=== PATIENT | male | born 1955 | race Caucasian/White ===

== ENCOUNTER 2017-08-15 19:39 | Inpatient (IN) | payer BC ==
[~2017-08-15] VITALS: Ht 200.7 cm; Wt 117.5 kg
--- NOTE | ~2017-08-15 | EKG ---
[place], [place] ELECTROCARDIOGRAM REPORT NAME: RENETTA NEAL UNIT #: [id number] ROOM: [facility] DOCTOR: RENAN RODRÍGUEZ MD,HESHAM BIRTHDATE: [birth year] DOS: 08/15/2017 ELECTROCARDIOGRAM The electrocardiogram done on 08/15/2017 at 8:03 p.m. Normal sinus rhythm noted. Heart rate of 87 beats per minute. Poor R-wave progression of the patient was also noted in the left chest leads. Nonspecific ST-T changes noted in the chest leads as well. HESHAM URRUTIA MD CM:EKGRPT:ELECTROCARDIOGRAM REPORT [id number] HESHAM RODRÍGUEZ MD
--- NOTE | ~2017-08-15 | WRIGHTHP ---
[place], [place] PATIENT HISTORY AND PHYSICAL EXAM NAME: RENETTA NEAL [facility] #: [id number] UNIT #: [id number] ROOM: [facility] DOCTOR: YUE BARRAZA MD BIRTHDATE: [birth year] DOS: 08/15/2017 DIAGNOSES: 1. The patient is a 62-year-old gentleman with history of type 1 diabetes mellitus since the age of 17. 2. Charcot foot and right below knee amputation. 3. Mixed hyperlipidemia. HISTORY OF PRESENT ILLNESS: The patient presented to the emergency department with 2-day complaints of increasing nausea, weakness and feeling quite sick. In the ER, the patient was found to have severe hyperglycemia with the blood sugar of 700 and diabetic ketoacidosis with acute renal failure, hyperkalemia and severe leukocytosis compatible with sepsis. The patient also had bacteriuria and signs of urinary infection along with right middle lobe pneumonia on the chest x-ray and elevated white cell count of 21,000. The patient started on treatment with IV insulin and hydration with normal saline in the emergency department and given intravenous insulin and admitted to ICU at [facility]. The patient was started on IV Zosyn for a urinary infection for bacteriuria and his lactic acid level was elevated to 4.7, which was followed. With treatment, the patient is feeling much better. He has started eating. There are no complaints of any chest pain, no shortness of breath, no other GI or urinary symptoms. The nausea has resolved. REVIEW OF SYSTEMS: LUNGS: No increasing shortness of breath or wheezing. GASTROINTESTINAL: The patient did have nausea, but no vomiting or diarrhea. CARDIOVASCULAR: No chest pain, no palpitations. FAMILY HISTORY: Noncontributory. SOCIAL HISTORY: Denies smoking cigarettes, alcohol and drug abuse. HOME MEDICATIONS: The patient is on insulin pump, aspirin and albuterol inhaler. ALLERGIES: No known drug allergies. PHYSICAL EXAMINATION: GENERAL APPEARANCE: Alert, oriented times 3, in no visible distress. HEENT AND NECK: Extraocular movements are intact. Sclerae are anicteric. Oral mucosa is moist and clean. No obvious facial weakness. Neck is supple without any lymphadenopathy. No thyromegaly. No JVD. No carotid arterial bruits. LUNGS: Clear to auscultation. No wheezing. No rhonchi. CARDIOVASCULAR SYSTEM: Heart rate is regular in rate and rhythm. S1 and S2 normally audible. No significant murmur or any other abnormal cardiac sounds. ABDOMEN: Soft, nontender. No obvious organomegaly. Bowel sounds are present. No obvious herniation. EXTREMITIES: Right below knee amputation. CENTRAL NERVOUS SYSTEM: Alert and oriented x 3. Cranial nerves II-XII are intact. Speech is normal. The patient is able to move all extremities. Normal [place], [place] PATIENT HISTORY AND PHYSICAL EXAM NAME: RENETTA NEAL UNIT #: [id number] ROOM: [facility] DOCTOR: YUE BARRAZA MD BIRTHDATE: [birth year] muscle strength. Deep tendon reflexes are equal on both sides. Plantars were downgoing. LABORATORY DATA: Blood sugars have improved from 700 to 138 now. Potassium has improved to normal from 5.7 at admission and CO2 level of 7. Basic metabolic profile has improved to normal at 21 with treatment. IMPRESSION: 1. The patient with diabetic ketoacidosis apparently induced by infection. The patient is a type 1 diabetic since the age of 17 and uses insulin pump. The patient has been treated with IV insulin infusion protocol and hydrated with normal saline and later on D5 half normal along with potassium supplementation and his serum electrolytes, blood sugars were monitored closely in the ICU. The patient is still on dextrose infusion and his IV insulin has been converted to every 4 hours insulin sliding scale and his insulin pump that he takes at home is going to be restarted. The patient is still being followed closely in the ICU. Case discussed with nursing staff in detail. 2. Type 1 diabetes mellitus with hemoglobin A1c of 7.8, treated with insulin pump at home. 3. Urinary tract infection with bacteriuria, IV antibiotic started. 4. Leukocytosis related to urinary tract infection and right middle lobe pneumonia. White cell counts to be monitored while patient is being treated with antibiotics. 5. Right below knee amputation for Charcot foot abnormality related to his diabetes. 6. Acute kidney failure and acute tubular necrosis, improved with hydration and blood pressure control. 7. Blood cultures ordered, complete blood counts and white cell counts along with BUN, creatinine, potassium level, sodium and CO2 levels are being monitored. The patient is out of diabetic ketoacidosis. His anion gap has normalized and lactic acid levels have come down with treatment. The patient is clinically looking well and has stabilized, but I will continue to observe him closely in the ICU. YUE BARRAZA MD CM:HISPHYS:PATIENT HISTORY AND PHYSICAL EXAMINATION [id number] YUE BARRAZA MD 08/16/17 1827 interface
--- NOTE | ~2017-08-15 | CON ---
[place], [place] REPORT OF CONSULTATION NAME: RENETTA NEAL UNIT #: [id number] ROOM: [facility] DOCTOR: HESHAM AMARAL MD BIRTHDATE: [birth year] DOS: 08/16/2017 PULMONARY CONSULTATION, EVALUATION AND MANAGEMENT CONSULTATION REQUESTED BY: Dr. Perez and Dr. Amarilis Rois. REASON FOR CONSULTATION: For the assessment of acute pneumonia. HISTORY OF PRESENT ILLNESS: This is a 62-year-old of male patient who has been admitted to [facility] on 08/15/2017. The patient has been brought to the hospital by the ambulance as the patient has been noted getting increased symptoms of nausea, vomiting, which has been ongoing for at least 24 hours or greater. He was also noted with symptoms of dizziness and generalized weakness and fatigue. The patient denies any symptoms of chest pain. He has been noted with increased lethargy as reported at home. There has not been any witnessed aspiration described for this patient on admission. He has been noted with a significant elevation of the blood sugar for more than 700 was also found. At home the sugar was noted 527 as well. The patient has been admitted to the Intensive Care Unit where he has been managed for the current problems and other issues. At the present time, the patient denies any symptoms of acute shortness of breath. Denies symptoms of chest pain. He does not have any symptoms of coughing, wheezing or hemoptysis. REVIEW OF SYSTEMS: CONSTITUTIONAL SYMPTOMS: He was noted with symptoms of fatigue and tiredness. Denies symptoms of fever or chills. EYES: Denies any burning or redness. EARS, NOSE, AND THROAT: Sore throat, hoarseness, otalgia, postnasal drainage or epistaxis. CARDIOVASCULAR SYSTEM: Denies any symptoms of anginal pain, palpitation or edema of the extremities. GASTROINTESTINAL: Symptoms of nausea, vomiting for the patient which has been present, couple of days had been completely resolved at this time. No symptoms of dysphagia or any abnormal weight loss history. GENITOURINARY SYMPTOMS: Polyuria for the patient described without any burning of urination, hematuria. SKIN: Denies lesions or rashes. CENTRAL NERVOUS SYSTEM: Dizziness described with symptoms of seizures or syncopal episodes or tingling sensation of the extremities. Remaining systems were reviewed with the patient, they were noted all negative. PAST MEDICAL HISTORY: Reported as: 1. History of type 2 diabetes mellitus of the patient. 2. Hypercholesterolemia. 3. History of essential hypertension. PAST SURGICAL HISTORY: Reported as 1. Insulin pump infusion. 2. Right cataract extraction for the patient with intraocular lens [place], [place] REPORT OF CONSULTATION NAME: RENETTA NEAL UNIT #: [id number] ROOM: [facility] DOCTOR: RENAN RODRÍGUEZ MD,HESHAM BIRTHDATE: [birth year] implantation. 3. Left knee arthroscopy. 4. T and A. 5. Left foot surgery. SOCIAL HISTORY: The patient stated he is , has one child. He has a known history of tobacco use of the patient since teenager, 3/4 pack of cigarettes per day, which has been discontinued about 6 years ago. Currently, the patient smoking cigars intermittently. FAMILY HISTORY: Both parents had been and the history was described to be noncontributory by the patient. HOME MEDICATIONS: Listed in the medication reconciliation by the nursing staff for this patient: 1. Insulin pump use for medical management of diabetes mellitus. 2. Aspirin 81 mg daily. 3. Vitamin D 2000 international units daily. 4. Nexium 40 mg daily. 5. Zestril 20 mg daily. 6. Metoprolol tartrate 50 mg daily. 7. Zocor 40 mg daily. 8. NovoLog insulin was also used by the patient with the insulin pump. DRUG ALLERGY HISTORY: The patient was noted as no known drug allergies. PHYSICAL EXAMINATION: GENERAL: A 62-year-old white male was noted currently awake and alert without any acute distress. Height were recorded as 6 feet 7 inches, weight of 117 kg with BMI of 29.2. VITAL SIGNS: For the patient, which were recorded showed the temperature noted normal since admission, respiratory rate 18-20, heart rate 92-100. The blood pressure 102/59-113/48. The pulse oxygen saturation of the patient recorded on room air was 96% saturation. HEENT: Head was atraumatic, mild obesity. NECK: Supple. CARDIOVASCULAR: S1, S2 audible. LUNGS: The patient was noted without any wheezing or crackles. ABDOMEN: Soft, nontender. Bowel sounds present. CENTRAL NERVOUS SYSTEM: Cranial nerves 2-12 intact. No focal deficit. MUSCULOSKELETAL: No deformities. SKIN: No lesions or rashes. LABORATORY DATA: Lactic acid on admission noted 4.7. CBC of 08/15/2017, WBC count of 21.4, hemoglobin and hematocrit normal, platelet count were normal with 86% segmented neutrophils on admission. CMP on admission, glucose 700, BUN 41, creatinine 1.75. Sodium 130, potassium 5.7. Chloride of 92, CO2 of 7 with anion gap of 31. The findings were noted consistent with evidence of diabetic ketoacidosis. The serum ketone level is noted 1:8 dilution positive. The PT, PTT for the patient noted as normal. Bedside blood glucose of the patient has [place], [place] REPORT OF CONSULTATION NAME: RENETTA NEAL UNIT #: [id number] ROOM: [facility] DOCTOR: RENAN RODRÍGUEZ MD,[facility] BIRTHDATE: [birth year] been monitored from yesterday, with the blood glucose this morning for this patient recorded 191 at 9:00 a.m. BMP of the patient later on 08/15/2017, glucose 587, BUN 43, creatinine 1.86. Sodium 134, chloride of 99, CO2 of 8, still shows evidence of elevation of anion gap for this patient. Follow up lactic acid 3.2. Potassium repeated was 4.7. BMP for the patient this morning was noted with glucose 280, BUN 48, creatinine 1.64. Sodium 135, potassium 3.8, chloride of 103, CO2 of 19. The anion gap was noted as 13 at the present time. CBC this morning, WBC count 17.6, hemoglobin 14.9, hematocrit 43.4 with a platelet count 250,000. The review of the radiology data for the patient is: Chest x-ray done on admission of the patient, which was personally reviewed. It shows evidence of right middle lobe area of atelectasis or small infiltration was suspected. IMPRESSION: 1. The patient who had been admitted to the hospital noted with symptoms of nausea, vomiting and abnormal chest x-ray. The patient currently noted with initial first diagnosis of diabetic ketoacidosis. The patient with history of insulin use of the patient with the insulin pump and not been noted functional effectively. 2. Right middle lobe infiltration. Possibility of acute pneumonia for this patient secondary to small aspiration cannot be completely excluded because of the current nausea, vomiting and lethargy. 3. The patient with a history of essential hypertension. 4. Acute kidney injury. The patient noted as a result of current diabetic ketoacidosis. 5. Lactic acidosis, most likely related to current diabetic ketoacidosis with possibility of sepsis cannot be completely excluded in addition to the other medical illnesses. PLAN OF MANAGEMENT: The patient has been given intravenous insulin drip for the patient resulting in resolution of diabetic ketoacidosis at the present time. He has been monitored for the patient's kidney function at this time closely, which seemed to be resolving. The patient was getting IV Zosyn that will be continued as a primary antibiotics for the patient possibility of aspiration. Obtain a PA lateral chest x-ray of the patient in the morning as well to assess the progression of the current pulmonary infiltration. Obtain the sputum for Gram stain and culture if the patient developed productive cough at this time. He does not have any productive cough. Usual care. Other treatment changes to be made for the patient based on progression of the illness. Addition of the DVT prophylaxis for this patient as well. Monitor hemodynamically the patient closely as well. Further subsequent changes will be made for this patient later on as necessary. Thanks for allowing me to participate in the care of this patient. [place], [place] REPORT OF CONSULTATION NAME: RENETTA NEAL UNIT #: [id number] ROOM: [facility] DOCTOR: HESHAM AMARAL MD BIRTHDATE: [birth year] HESHAM URRUTIA MD CM:CONSTR:REPORT OF CONSULTATION 1055 08/17/17 0305 interface
[~2017-08-15 19:39] MED LIST: ASPIRIN81 M1 PO; HUMALOG100 U/ML SC; KEFLEX500 MG PO; VICODIN ES 7501 TAB PO; ZESTRIL,PRINIVI20 MG PO; ZOCOR40 MG PO
[2017-08-15 20:10] VITALS: BP 113/48
[2017-08-15 20:21] LABS: HEMATOCRIT 49.1 % (42.0-52.0); HEMOGLOBIN 16.3 g/dl (14.0-18.0); MEAN CELL VOLUME 96.1 fl (80.0-94.0); MEAN CORPUSCULAR HGB 31.9 pg (27.0-31.0); MEAN CORPUSCULAR HGB CONC 33.2 g/dl (33.0-37.0); PLATELET COUNT AUTOMATED 266 10*3/uL (130-400); RED BLOOD COUNT 5.11 10*6/uL (4.50-5.90); RED CELL DISTRI WIDTH 13.2 % (0-14.5); WHITE BLOOD COUNT 21.4 10*3/uL (4.8-10.8)
[2017-08-15 20:38] LABS: ALBUMIN 3.1 gm/dl (3.1-4.5); CREATININE 1.75 mg/dL (0.70-1.30); POTASSIUM 5.7 mmol/L (3.5-5.1); TOTAL PROTEIN 6.8 gm/dL (6.4-8.2)
[2017-08-15 20:40] LABS: BURR CELLS MODERATE; PLATELET SUFFICIENCY NORMAL (NORMAL); TOTAL CELLS COUNTED 100 #CELLS
[2017-08-15 20:44] LABS: TROPONIN I 0.796 ng/ml (<0.045)
--- NOTE | 2017-08-15 20:45 | NUR ---
notified dr capone of troponin, glucose and co1
[2017-08-15 20:55] LABS: ACT PARTIAL THROMBO TIME 28.3 SECONDS (20.8-31.5)
[2017-08-15 21:52] LABS: BILIRUBIN NEGATIVE (NEGATIVE); BLOOD NEGATIVE (NEGATIVE); CLARITY CLEAR (CLEAR); COLOR YELLOW (YELLOW); GLUCOSE 3+ (NEGATIVE); KETONE 2+ (NEGATIVE); LEUKO ESTERASE NEGATIVE (NEGATIVE); NITRITE NEGATIVE (NEGATIVE); PH 5.5 (5.0-9.0); UROBILINOGEN 0.2 E.U./dl (0.2-1.0)
[2017-08-15 21:59] LABS: BACTERIA 2+; MUCOUS TRACE; RBC 0-2 rbc/hpf (0-2); WBC 0-2 wbc/hpf (0-5)
[2017-08-15 22:00] VITALS: BP 109/56
[2017-08-15 22:05] VITALS: BP 113/51
--- NOTE | 2017-08-15 22:05 | NUR ---
A 62, admitted to ICCU, under the services of Dr. CHRISTI STOVALL,YUE Ghosh with a diagnosis of DKA. Chief complaint is NAUSEA, GLUCOSE TOO HIGH TO READ. Patient arrived via stretcher from ER. Monitor applied. Initial assessment completed. Vital signs taken and recorded. DR. CHRISTI STOVALL,YUE Ghosh notified of admission to the unit. Orders received. See assessment for past medical history, medications and allergies. Patient and/or family oriented to unit. [facility]U visitation policy reviewed. Clothing/patient valuable form completed. BARBARA PAINTER
--- NOTE | 2017-08-15 22:20 | NUR ---
PT. STATES HE DOES TAKE CURRENT MEDS ON MED REQUISITION LISTED, BUT IS UNSURE IF THERE ARE ADDITIONAL MEDICATIONS AND DOES NOT HAVE A LIST WITH HIM.
--- NOTE | 2017-08-15 22:22 | NUR ---
REPORT GIVEN TO AMINAH CARUSO. BEDISDE GLUCOSE PERFORMED BEFORE PT TRANSPORT, CRITICALLY HIGH. STAT REFLUX ORDERED
--- NOTE | 2017-08-15 23:01 | NUR ---
24 HR chart check completed.
--- NOTE | 2017-08-15 23:37 | NUR ---
DR. BARRAZA NOTIFIED OF CRITICAL GLUCOSE AND LACTIC ACID RESULTS.
[2017-08-16] VITALS: BP 94/63
[2017-08-16 00:02] LABS: CREATININE 1.86 mg/dL (0.70-1.30)
[2017-08-16 00:03] LABS: POTASSIUM 4.7 mmol/L (3.5-5.1)
--- NOTE | 2017-08-16 00:08 | NUR ---
DR. URRUTIA NOTIFIED OF CONSULT.
--- NOTE | 2017-08-16 00:12 | NUR ---
DR. BARRAZA NOTIFIED OF CRITICAL GLUCOSE AND CO2 RESULTS. WAS ALSO NOTIFIED THAT A PRIME REP CALLED AND REQUESTED THAT BLOOD CULTURES ARE ORDERED. WAS ALSO NOTIFIED THAT THE REP WANTED A REASON TO WHY THE BLOOD CULTURES WERE NOT DRAWN PRIOR TO THE FIRST DOSE OF ANTIBIOTICS DOCUMENTED.
--- NOTE | 2017-08-16 02:26 | NUR ---
PHONE NUMBER LICO [phone]
[2017-08-16 04:00] VITALS: BP 120/62
[2017-08-16 06:06] LABS: BASO % 0.1 % (0.0-1.0); HEMATOCRIT 43.4 % (42.0-52.0); HEMOGLOBIN 14.9 g/dl (14.0-18.0); LYMPH # 1.9 10*3/uL (1.3-4.4); LYMPH % 10.6 % (27.0-41.0); MEAN CORPUSCULAR HGB 31.6 pg (27.0-31.0); MEAN CORPUSCULAR HGB CONC 34.3 g/dl (33.0-37.0); MEAN PLATELET VOLUME 9.3 fl (9.6-12.3); MONO # 0.9 10*3/uL (0.1-1.0); MONO % 5.2 % (3.0-9.0); NEUT # 14.7 10*3/uL (2.3-7.9); NEUT % 83.5 % (47.0-73.0); PLATELET COUNT AUTOMATED 250 10*3/uL (130-400); RED BLOOD COUNT 4.72 10*6/uL (4.50-5.90); RED CELL DISTRI WIDTH 13.2 % (0-14.5); WHITE BLOOD COUNT 17.6 10*3/uL (4.8-10.8)
[2017-08-16 06:12] LABS: MEAN CELL VOLUME 91.9 fl (80.0-94.0)
[2017-08-16 06:28] LABS: CREATININE 1.64 mg/dL (0.70-1.30); POTASSIUM 3.8 mmol/L (3.5-5.1)
[2017-08-16 08:00] VITALS: BP 102/59
--- NOTE | 2017-08-16 09:00 | NUR ---
Human Services Care Specialist in to talk to patient. Patient states lives at HOME with HIS . There are 12 steps in the home. Physician: DR CARDENAS Pharmacy: [facility] health services: NONE Patient's level of ADLs: INDEPENDENT Patient has working utilities: YES DME: PROSTHEITC RIGHT LEG R BKA Follow-up physician's appointment after d/c: PREFERS TO MAKE HIS OWN APPT Does patient want to access PORTAL?: Discharge plan HOME. ANGUS PHILLIPS
[2017-08-16] MEDS ORDERED: LOPRESSOR50 M1 PO (09:31)
[2017-08-16] MEDS ORDERED: NEXIUM40 MG PO (09:32)
[2017-08-16] MEDS ORDERED: VITAMIN D32000 UNIT PO (09:33)
[2017-08-16] MEDS ORDERED: THERATRUM COMP1 EAC1 PO (09:35)
[2017-08-16 12:00] VITALS: BP 104/56
[2017-08-16 12:27] LABS: BUN 43 mg/dl (7-24); CHLORIDE 106 mmol/L (98-107); CREATININE 1.25 mg/dL (0.70-1.30); POTASSIUM 3.5 mmol/L (3.5-5.1); SODIUM 136 mmol/L (136-145)
[2017-08-16 16:00] VITALS: BP 104/56
--- NOTE | 2017-08-16 16:00 | NUR ---
DR. BARRAZA NOTIFIED OF CBS 155 AND NOT HAVING HOME INSULIN DRIP TO INITIATE. WELL ELEVATED TROPONIN UPON ADMISSION WITHOUT FOLLOW UP. NEW ORDERS RECEIVED. MIGUEL A FRANCES RN
--- NOTE | 2017-08-16 18:00 | NUR ---
DR. BARRAZA NOTIFIED OF BRIGHT RED EMESIS W/ FLECKS OF COFFEE GROUNDS. NEW ORDERS RECEIVED. MIGUEL A FRANCES RN
[2017-08-16 18:26] LABS: BUN 43 mg/dl (7-24); CHLORIDE 102 mmol/L (98-107); CREATININE 1.11 mg/dL (0.70-1.30); POTASSIUM 3.9 mmol/L (3.5-5.1); SODIUM 132 mmol/L (136-145)
--- NOTE | 2017-08-16 18:50 | NUR ---
NOTIFIED OF ELEVATED TROPONIN AND ABNORMAL BMP. NEW ORDERS RECEIVED. MIGUEL A FRANCES RN
--- NOTE | 2017-08-16 19:00 | NUR ---
DR. TEE CALLED IN AFTER SPEAKING TO DR. BARRAZA REGARDING PATIENT'S CONDITION. EKG OBTAINED AND SENT TO DR. TEE AND DR. BARRAZA. DR. TEE CALLED BACK STATING HE'S ARRANGING TRANSFER TO ICU AT [facility] BY HELICOPTOR. DR. BARRAZA NOTIFIED AND AWARE OF TRANSFER. MIGUEL A FRANCES RN
--- NOTE | 2017-08-16 19:07 | NUR ---
DR. TEE NOTIFIED OF CONSULT.
[2017-08-16 20:00] VITALS: BP 124/63
--- NOTE | 2017-08-16 20:25 | NUR ---
1945 PT RESTING IN BED TALKING WITH FAMILY. INSULIN GTT RESTARTED AT 1930. IV FLUIDS INFUSING WELL. CONT TO DENY CHEST PAIN OR DISCOMFORT. PULSE OX 98% ON 2L. BANERJEE PATENT AND DRAINING CLEAR YELLOW URINE. 2019 LAB CALLED.SAID THEY ARE HAVING TROUBLE WITH THEIR MACHINE THAT DOES THE TROPONIN'S.THEY WILL LET US KNOW WHEN THEY ARE ABLE TO RUN IT. 2024 LAB CALLED CONT ELEVATED TROPONIN. STILL WAITING ON A RETURN CALL FROM [facility] WITH A BED AND THEN WE WILL CALL FOR TRANSPORT.
--- NOTE | 2017-08-16 21:14 | NUR ---
ATTEMPTED TO CALL DR. TEE WITH AN UPDATE. 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
--- NOTE | 2017-08-16 22:36 | NUR ---
[facility] [facility] CALLED WITH A BED. HELICOPTER IS ON THEIR WAY. PT REMAINS WIHTOUT C/O'S.
--- NOTE | 2017-08-16 23:05 | NUR ---
DISCHARGED TO .' VIA STAT [facility]. REPORT GIVEN. PROPER PAPERS SENT WITH PT.
--- NOTE | 2017-08-16 23:08 | NUR ---
SON, PENG, CALLED TO LET HIM KNOW OF TRANSFER.
--- NOTE | 2017-08-16 23:25 | NUR ---
[address] [facility]
== END 2017-08-16 23:05 | disposition short-term general hospital (02) | DRG 637 ==
LOC: ED 19:39 → EDHOLD 21:02 → ICCU 21:12
PROVIDERS: Emergency Medicine Emergency Medical Services; ADMIT Internal Medicine
DX: E10.10 Type 1 diabetes mellitus with ketoacidosis without coma (principal); J18.1 Lobar pneumonia, unspecified organism; N17.0 Acute kidney failure with tubular necrosis; N39.0 Urinary tract infection, site not specified; D72.829 Elevated white blood cell count, unspecified; Z96.41 Presence of insulin pump (external) (internal); B96.89 Other specified bacterial agents as the cause of diseases classified elsewhere; I10 Essential (primary) hypertension; Z96.1 Presence of intraocular lens; M14.679 Charcot's joint, unspecified ankle and foot; E78.2 Mixed hyperlipidemia; Z89.511 Acquired absence of right leg below knee; Z98.41 Cataract extraction status, right eye; Z79.4 Long term (current) use of insulin

== ENCOUNTER → 2017-10-08 | Outpatient (CLI) | payer BC ==
[~2017-10-08] MED LIST changes: +LOPRESSOR50 M1 PO; +NEXIUM40 MG PO; +THERATRUM COMP1 EAC1 PO; +VITAMIN D32000 UNIT PO
[2017-10-08 11:37] LABS: BILIRUBIN NEGATIVE (NEGATIVE); BLOOD NEGATIVE (NEGATIVE); CLARITY CLEAR (CLEAR); COLOR YELLOW (YELLOW); GLUCOSE 3+ (NEGATIVE); KETONE NEGATIVE (NEGATIVE); LEUKO ESTERASE NEGATIVE (NEGATIVE); NITRITE NEGATIVE (NEGATIVE); PH 5.5 (5.0-9.0); SPECIFIC GRAVITY 1.015 (1.005-1.030); UROBILINOGEN 0.2 E.U./dl (0.2-1.0)
[2017-10-08 11:54] LABS: ABG BASE EXCESS -0.3 mmol/L (-2.0-2.0); ABG HCO3 22.1 mmol/l (22-26); ABG O2 SATURATION 97.3 % (95-97); ARTERIAL BLOOD GAS PCO2 31.4 mmHg (35-45); ARTERIAL BLOOD GAS PH 7.461 (7.35-7.45); ARTERIAL BLOOD GAS PO2 86.1 mmHg (80-90)
== END | disposition home or self-care (01) ==
LOC: LAB 10:58
PROVIDERS: Internal Medicine
DX: Z01.818 Encounter for other preprocedural examination (principal); R79.9 Abnormal finding of blood chemistry, unspecified; R33.9 Retention of urine, unspecified; J20.5 Acute bronchitis due to respiratory syncytial virus; I10 Essential (primary) hypertension

== ENCOUNTER 2019-03-14 09:17 | Inpatient (IN) | payer BC ==
[~2019-03-14] VITALS: Ht 200.6 cm; Wt 122.6 kg
--- NOTE | ~2019-03-14 | PR ---
[place], [place] PROGRESS NOTE [id number] UN[facility] #: [id number] ROOM: 507 DOCTOR: JASBIR CARDENAS MD BIRTHDATE: [birth year] DOS: 03/21/2019 SUBJECTIVE: The patient is doing well, does not have any complaints, awaiting the wound VAC. OBJECTIVE: VITAL SIGNS: Graphic trend shows a pressure 110/51, pulse of 62, respirations 18, temperature 98.1. LUNGS: Diminished breath sounds. Clear. HEART: Regular. ABDOMEN: Obese, soft. EXTREMITIES: Right below knee amputation. Left heavily bandaged with a wound VAC, which is draining. Wound pathology, no evidence of osteomyelitis. Wound culture shows no bacterial growth. ASSESSMENT AND PLAN: 1. Diabetic wound, stage 4. The patient has had debridement and is on a wound VAC on IV antibiotics. No evidence of osteomyelitis. The plan is to discharge to home today with IV antibiotics for 3 weeks as advised by ID. Wound VAC is to be obtained today. 2. Type 1 diabetes mellitus, controlled. JASBIR CARDENAS MD CM:PNTRANS [id number] JASBIR CARDENAS MD 03/21/19 1805 interface
--- NOTE | ~2019-03-14 | PR ---
[place], [place] PROGRESS NOTE NAME: [facility] [id number] UNIT #: [id number] ROOM: 507 DOCTOR: YUE BARRAZA MD BIRTHDATE: [birth year] DOS: 03/18/2019 SUBJECTIVE: The patient is status post foot surgery, now with wound VAC placement. OBJECTIVE: GENERAL APPEARANCE: The patient is alert and oriented x 3, in no visible distress. VITAL SIGNS: Blood pressure 130/63, heart rate 72 beats per minute, breathing 20 times per minute, temperature 98.2 degrees Fahrenheit. HEENT AND NECK: Exam within normal limits. CARDIOVASCULAR SYSTEM: Heart rate is regular in rate and rhythm. S1 and S2 normally audible. LUNGS: Clear to auscultation. ABDOMEN: Soft, nontender. No obvious organomegaly. Bowel sounds are present. EXTREMITIES: Right below knee amputation and left foot with bandages and wound VAC in place. IMPRESSION: 1. Osteomyelitis involving multiple metatarsophalangeal joints and phalanges, status post wound debridement, wound VAC and antibiotic treatment with cefepime and vancomycin. 2. Coronary artery disease of the [place] vessels without chest pain. 3. Type 1 diabetes mellitus. Blood sugars are being checked and controlled and ranging between 130-200, well controlled. 4. Wound cultures pending. No bacterial growth so far. YUE BARRAZA MD CM:PNTRANS [id number] YUE BARRAZA MD 03/19/19 0225 interface
--- NOTE | ~2019-03-14 | PR ---
[place], [place] PROGRESS NOTE NAME: RENETTA NEAL UNIT #: [id number] ROOM: 507 DOCTOR: JASBIR CARDENAS MD BIRTHDATE: [birth year] DOS: SUBJECTIVE: The patient is awaiting for his wound VAC anxiously. He wants to go home with a wound VAC and IV antibiotics. OBJECTIVE: VITAL SIGNS: Graphic trend shows a pressure of 131/58, pulse of 59, respirations 16, temperature 98. LUNGS: Clear. HEART: Regular. ABDOMEN: Obese. EXTREMITIES: Without any edema. LABORATORY DATA: Blood cultures, no bacterial growth. Wound culture, no organisms noted. No bacterial growth. ASSESSMENT AND PLAN: 1. Osteomyelitis of the left foot, on intravenous antibiotics. 2. Diabetic ulcer of the left foot, status post debridement and wound VAC placement. The patient is waiting for the wound VAC to be approved by the insurance and once that is obtained, he should be able to go home. 3. Type 1 diabetes mellitus, controlled. JASBIR CARDENAS MD CM:PNTRANS [id number] JASBIR CARDENAS MD 03/20/19 2354 interface
--- NOTE | ~2019-03-14 | WRIGHTHP ---
[place], [place] PATIENT HISTORY AND PHYSICAL EXAM NAME: RENETTA NEAL [facility] #: [id number] UNIT #: [id number] ROOM: 507 DOCTOR: JASBIR CARDENAS MD BIRTHDATE: [birth year] DOS: 03/15/2019 HISTORY OF PRESENT ILLNESS: This patient is 64 years old, very well known to us. About 2 months ago, he put a shoe that was ill-fitting, rubbed on his foot, developed a small wound and this progressively gotten worse. He presented in the office 6 weeks ago with this wound, which he was treating as an outpatient on himself and was definitely not looking good with surrounding redness, cellulitis and so was referred [facility]. He has been seeing them for close to 6 weeks. During the time he has been getting wound care, he had seen Dr. Bautista in [place] for angiogram and angioplasty for severe peripheral vascular disease. The cyst at the wound has gotten worse. He was sent to the ER yesterday by [facility]. He does not have any fever, chills, has minimal discomfort in his foot. PAST MEDICAL HISTORY: Significant for: 1. Type 1 diabetes for 50 years. 2. Benign hypertension. 3. Coronary artery disease with history of coronary artery bypass graft. 4. Peripheral vascular disease, status post stenting. 5. Metatarsal fracture of the left foot. 6. Gastroesophageal reflux disease. MEDICATIONS: He is currently on Lasix 40 b.i.d., atorvastatin 80 daily, Plavix 75 daily Entresto one tablet twice a day, Nexium 40 daily, metoprolol 50 b.i.d., spironolactone 25 daily, insulin pump, aspirin 81 daily. SOCIAL HISTORY: Nonsmoker. Does not use any alcohol. PHYSICAL EXAMINATION: GENERAL: He is awake and alert and oriented. VITAL SIGNS: Blood pressure is 118/55, pulse of 81, respirations 16, temperature 98.3. LUNGS: Diminished breath sounds. No wheezes, rales, rhonchi heard. HEART: Regular. ABDOMEN: Obese, soft, nontender. EXTREMITIES: Right below knee amputation. Left foot, there is minimal redness in the foot, large eschar on the bottom of the left foot with some ulcerations surrounding it along with cellulitis. The foot is warm to touch. LABORATORY DATA: White cell count is 9.8, hemoglobin is normal at 15.6. Lactic acid is normal. Comprehensive is within normal limits except for sodium 135. Foot x-ray was done, which showed a nondisplaced fracture of the base of the fifth metatarsal and a calcaneal spur. A CT of the foot showed again a transverse fracture of the base of the fifth metatarsal, plantar ulcerations noticed, no gross bone destruction seen. ESR is 51. CRP is 509. ASSESSMENT AND PLAN: 1. The patient presents with poorly healing wound of the left foot and has a large eschar on top of the wound, which needs to be debrided and wound care continued. [place], [place] PATIENT HISTORY AND PHYSICAL EXAM [facility]: [facility] [id number] UN[facility] #: [id number] ROOM: [facility] DOCTOR: JASBIR CARDENAS MD BIRTHDATE: [birth year] 2. Possibility of osteomyelitis. We will arrange for an MRI of the left foot and triphasic bone scan and most likely bone biopsy. 3. Type 1 diabetes mellitus, insulin-dependent, controlled. 4. Peripheral vascular disease, recent stent placement. Continue Plavix and aspirin. JASBIR CARDENAS MD CM:HISPHYS:PATIENT HISTORY AND PHYSICAL EXAMINATION [id number] JASBIR CARDENAS MD 03/15/19 1413 interface
--- NOTE | ~2019-03-14 | PR ---
[place], [place] PROGRESS NOTE [id number] UN[facility] #: [id number] ROOM: 507 DOCTOR: JASBIR CARDENAS MD BIRTHDATE: [birth year] DOS: 03/16/2019 SUBJECTIVE: He is resting comfortably, does not have any complaints. OBJECTIVE: VITAL SIGNS: Graphic trend shows a pressure 112/96, pulse of 87, respirations 20, temperature 97.5. LUNGS: Clear. HEART: Regular. ABDOMEN: Obese, soft. EXTREMITIES: With trace edema, left. Below-knee amputation, right. Large plantar ulcer with eschar. IMAGING: Triphasic bone scan shows increased uptake in the third to fifth metatarsophalangeal joints with evidence of osteomyelitis and septic arthritis and a fifth metatarsal fracture. ASSESSMENT AND PLAN: 1. 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 The patient will have debridement and wound biopsy today. Wound culture in the beginning showed no bacterial growth. 2. Type 1 diabetes mellitus, controlled. We will put a PICC line in since he is going for surgical procedure to the OR and we will wait for ID to decide on antibiotic. JASBIR CARDENAS MD CM:PNTRANS [id number] JASBIR CARDENAS MD 03/16/19 0649 interface
--- NOTE | ~2019-03-14 | O ---
[place], [place] OPERATIVE NOTE NAME: RENETTA NEAL UNIT #: [id number] ROOM: 507 DOCTOR: AMADO LUA DPM BIRTHDATE: [birth year] DOS: 03/16/2019 PREOPERATIVE DIAGNOSES: Abscess with ulceration, plantar left foot with possible osteomyelitis, second left metatarsal. POSTOPERATIVE DIAGNOSES: Abscess with ulceration, plantar left foot with possible osteomyelitis, second left metatarsal, pending pathology. PROCEDURES: Incision and drainage with debridement of left foot with bone biopsy, second left metatarsal. ESTIMATED BLOOD LOSS: 10 mL. SPECIMEN: Bone, second left metatarsal. TECHNICAL NOTE: PACKIN.5 inch plain packing. PHYSICS FACULTY MEMBER: Dr. Evan Gutierrez. ANESTHESIA: LMAC. COMPLICATIONS: None. PROCEDURE DETAILS: The patient was brought to the operating room, placed on the operating table in supine position. Anesthesia administered per Anesthesia Department. Local infiltration of 10 mL of 0.5% Marcaine plain was utilized for local block at the ankle. The left lower extremity prepped and draped in usual aseptic manner. Attention was directed to plantar left foot where a large ulceration was noted with eschar. The ulceration measured approximately 6.4 cm in length x 7.0 in width and depth of 0.4 cm at the medial aspect. The entire eschar was excised with a 15 blade excisionally. There was underlying adipose tissue with healthy bleeding noted. The medial aspect of the wound revealed the sinus tract to the second metatarsal shaft. A freer elevator utilized and was noted to tract distally and proximally. The sinus tract was opened with a 15 blade, was noted to the extend to the second metatarsal and at that time, a Jamshidi needle was utilized to obtain specimens of bone, which were sent for pathology to rule out osteomyelitis and cultures for Gram stain, aerobic, anaerobic, acid fast and fungal cultures. A second culture set was taken from the soft tissue. A necrotic nonviable tissue was excised. All bleeders were ligated with cautery. Area was flushed with sterile saline. The sinus tract was packed with 0.5 inch plain packing. A sterile compressed dressing was applied consisting of adaptic wet-to-dry with 4 x 4s, ABD, Kerlix and ANGEL bandage. The patient tolerated the procedures and anesthesia well and left the OR with vital signs stable and neurovascular status intact. The patient will return to the nursing unit to resume previous orders, orders for elevation of the left foot, apply ice behind the knee 30 minutes per hour today. Antibiotics will be ordered per infectious disease, reinforce dressing as needed and the patient will be seen tomorrow, at which time, a wound VAC will be applied. The [place], [place] OPERATIVE NOTE NAME: RENETTA NEAL UNIT #: [id number] ROOM: 507 DOCTOR: AMADO LUA DPM BIRTHDATE: [birth year] patient will be kept in half until early next week at the earliest and we will see the patient tomorrow. AMADO LUA DPM CM:OPRECORD:OPERATIVE NOTE [phone] AMADO LUA DPM 03/16/19 1823 interface
--- NOTE | ~2019-03-14 | PR ---
[place], [place] PROGRESS NOTE [facility]: [id number] UN[facility] #: [id number] ROOM: 507 DOCTOR: JASBIR CARDENAS MD BIRTHDATE: [birth year] DOS: SUBJECTIVE: The patient underwent surgery yesterday. Wound was drained and bone biopsy taken. Wound cultures are pending. OBJECTIVE: VITAL SIGNS: Graphic trend shows a pressure of 118/52, pulse of 61, respirations 20, temperature 98. LUNGS: Diminished breath sounds. Clear. HEART: Regular. ABDOMEN: Obese. EXTREMITIES: Heavily bandaged left leg, right below knee amputation. LABORATORY DATA: Blood culture shows no bacterial growth. Wound cultures are pending. ASSESSMENT AND PLAN: 1. The patient who has osteomyelitis of multiple MTP joints and phalanges. The patient is to have wound debridement and wound biopsy and cultures. PICC line was placed. Awaiting cultures to be completed and possible wound VAC placement. 2. Type 1 diabetes mellitus. Blood sugars are controlled. 3. Coronary artery disease of [place] coronaries. JASBIR CARDENAS MD CM:PNTRANS [phone] JASBIR CARDENAS MD 03/17/19 0656 interface
--- NOTE | ~2019-03-14 | PR ---
[place], [place] PROGRESS NOTE NAME: [facility] [id number] UNIT #: [id number] ROOM: 507 DOCTOR: AMADO LUA DPM BIRTHDATE: [birth year] DOS: 03/18/2019 SUBJECTIVE: The patient was seen postop day #2 for post I and D, left foot with bone biopsy. The patient is resting comfortably in bed. He is awake, alert and responsive. No nausea, vomiting, dizziness. No chest pain or shortness of breath. OBJECTIVE FINDINGS: The dressing and wound VAC is intact with no breakthrough bleeding or complication at this time. Negative Homans sign. No signs of DVT. ASSESSMENT: Post-diabetic foot infection, postoperative incision and drainage. PLAN: Continue wound VAC, which will be changed on Wednesday. Continue antibiotics per Infectious Disease. The patient should be okay to go home on IV antibiotics and home wound VAC by Wednesday. AMADO LUA DPM CM:PNTRANS [phone] AMADO LUA DPM 03/18/19 2018 interface
--- NOTE | ~2019-03-14 | DS ---
[place], [place] DISCHARGE SUMMARY NAME: RENETTA NEAL [facility] #: [id number] UNIT #: [id number] ROOM: 507 DOCTOR: JASBIR CARDENAS MD BIRTHDATE: [birth year] DOS: 03/21/2019 DIAGNOSES: 1. Diabetic foot ulcer, status post incision and drainage, small abscess, bone biopsy shows no evidence of osteomyelitis. 2. Type 1 diabetes mellitus. 3. Coronary artery disease of [place] coronaries. 4. Benign hypertension. DISCHARGE MEDICATIONS: Aspirin 81 daily, insulin pump, metoprolol 50 daily, Nexium 40 daily, multivitamin 1 tablet daily, Lasix 40 b.i.d., atorvastatin 80 daily, spironolactone 25 daily, Plavix 75 daily, Entresto one tablet twice a day. He is also taking ceftriaxone 2 grams 1 time daily and vancomycin 1750 t.i.d., these meds are for 3 weeks. Please do basic metabolic panel and vancomycin trough every third day. HOSPITAL COURSE: The patient is 64 years old, very well known to us, has had a diabetic foot ulcer for which he has been seeing Podiatry, had a visit with the Podiatry office and was sent to the Emergency Room. He had a large eschar on the foot with poorly healing wound, so he was admitted, after admission consultation with ID and Podiatry was obtained. MRI and bone scan were obtained. There was suspicion of bone osteomyelitis as well as septic arthritis of the metatarsophalangeal joints and a fracture of the fifth metatarsal bone. The patient was taken for surgery. The wound was debrided. A small abscess noted was drained and the bone biopsies and cultures were taken. Cultures have come back negative, bone biopsy shows no evidence of osteo. MRI and triphasic bone scan did show possibility of osteo. ESR and CRP are not too high. The patient is stable and after the surgery is not having any new complaints, the ESR was 51 and CRP was 5.09. The patient has not had any new complaints. The plan is to discharge. As per ID, the patient has been placed on vancomycin 1750 q. 8 and ceftriaxone 2 grams IV daily. The patient is stable. The plan is to discharge. He also has type 1 diabetes mellitus. He uses insulin pump. Blood sugars are well controlled. He does also have a history of coronary artery disease with stable and is not having any new complaints. The plan is to continue his home medications. He will follow up with Infectious Disease and Podiatry as an outpatient. He has a wound VAC ordered and hopefully will be able to get the wound VAC today and discharge should be arranged after he receives the wound VAC. [place], [place] DISCHARGE SUMMARY NAME: RENETTA NEAL UNIT #: [id number] ROOM: 507 DOCTOR: JASBIR CARDENAS MD BIRTHDATE: [birth year] JASBIR CARDENAS MD CM:MAREN [id number] JASBIR CARDENAS MD 03/22/19 1558 interface
--- NOTE | ~2019-03-14 | PR ---
[place], [place] PROGRESS NOTE NAME: RENETTA NEAL UNIT #: [id number] ROOM: 507 DOCTOR: YUE BARRAZA MD BIRTHDATE: [birth year] DOS: 03/19/2019 SUBJECTIVE: The patient is feeling good. He still has wound VAC in place after left foot surgery yesterday. OBJECTIVE: GENERAL APPEARANCE: The patient is alert and oriented x 3, in no visible distress. VITAL SIGNS: Blood pressure 132/53, heart rate of 64 beats per minute, breathing 20 times per minute, temperature 98.5 degrees Fahrenheit. HEENT AND NECK: Exam within normal limits. CARDIOVASCULAR SYSTEM: Heart rate is regular in rate and rhythm. S1 and S2 normally audible. LUNGS: Clear to auscultation. ABDOMEN: Soft, nontender. No obvious organomegaly. Bowel sounds are present. EXTREMITIES: Without significant cyanosis or edema. Right below knee amputation and left foot and bandages with wound VAC in place. IMPRESSION: 1. Osteomyelitis involving the left foot with wound VAC in place. The patient is being treated with cefepime and vancomycin. Podiatry and Infectious Disease specialists are following. 2. Coronary artery disease of the [place] vessels without chest pain. 3. Type 1 diabetes mellitus. Blood sugars are ranging between 130-150, well controlled. 4. Wound cultures are pending. 5. Coronary artery disease of the [place] vessels without chest pains. YUE BARRAZA MD CM:PNTRANS [id number] YUE BARRAZA MD 03/20/19 0213 interface
[2019-03-14 09:23] VITALS: BP 163/82
[2019-03-14 10:03] LABS: BASO % 0.3 % (0.0-1.0); EOS # 0.1 10*3/uL (0.0-0.4); EOS % 1.4 % (1.0-4.0); HEMOGLOBIN 15.8 g/dl (14.0-18.0); LYMPH # 1.5 10*3/uL (1.3-4.4); LYMPH % 15.5 % (27.0-41.0); MEAN CELL VOLUME 90.4 fl (80.0-94.0); MEAN CORPUSCULAR HGB CONC 34.3 g/dl (33.0-37.0); MEAN PLATELET VOLUME 9.4 fl (9.6-12.3); MONO # 0.7 10*3/uL (0.1-1.0); MONO % 7.6 % (3.0-9.0); NEUT # 7.3 10*3/uL (2.3-7.9); PLATELET COUNT AUTOMATED 322 10*3/uL (130-400); RED BLOOD COUNT 5.09 10*6/uL (4.50-5.90); RED CELL DISTRI WIDTH 12.8 % (0-14.5); WHITE BLOOD COUNT 9.8 10*3/uL (4.8-10.8)
[2019-03-14 10:18] LABS: ALBUMIN 2.9 gm/dl (3.1-4.5); ALKALINE PHOSPHATASE 114 U/L (45-117); BUN 16 mg/dl (7-24); CHLORIDE 102 mmol/L (98-107); CREATININE 0.85 mg/dL (0.70-1.30); SGOT/AST 16 IU/L (3-35); SGPT/ALT 23 U/L (12-78); SODIUM 135 mmol/L (136-145)
[2019-03-14 10:43] VITALS: BP 115/54
[2019-03-14 10:45] VITALS: BP 116/53
--- NOTE | 2019-03-14 11:40 | NUR ---
Time: 1139 A 64 year old MALE admitted to 5E under services of DR. THERESA STOVALL,JASBIR. Pt. arrived via stretcher from ER. Chief complaint: CELLULITIS, METATARSAL FRACTURE, DIABETIC FOOT ULCER. MITRA NI
--- NOTE | 2019-03-14 11:50 | NUR ---
MED REC UPDATED PER PT LIST.
[2019-03-14] MEDS ORDERED: LASIX40 MG PO (11:57)
[2019-03-14] MEDS ORDERED: LIPITOR80 MG PO (11:58)
[2019-03-14] MEDS ORDERED: ALDACTONE25 M1 PO (11:58)
[2019-03-14] MEDS ORDERED: PLAVIX75 M1 PO (12:00)
[2019-03-14] MEDS ORDERED: ENTRESTO 24 MG1 EACH PO (12:00)
--- NOTE | 2019-03-14 12:30 | NUR ---
DR CARDENAS CALLED FOR ADMISSSION ORDERS, WILL AWAIT RETURN CALL
--- NOTE | 2019-03-14 13:11 | NUR ---
DR AHN'S OFFICE NOTIFIED OF CONSULT.
--- NOTE | 2019-03-14 13:17 | NUR ---
UNABLE TO ASSESS/MEASURE WOUND AT THIS TIME. WOUND CARE/DRSG CHANGES TO BE COMPLETED BY PODITARY PER ORDERS.
[2019-03-14 16:00] VITALS: BP 131/54
--- NOTE | 2019-03-14 16:30 | NUR ---
GLUCOSE 173, PER PT INSULIN PUMP. PT STATES NO CHANGES MADE TO PUMP AT THIS TIME. NO S/S OF HYPO/HYPERGLYCEMIA NOTED. CALL LIGHT IN REACH. WILL MONITOR
[2019-03-14 20:00] VITALS: BP 118/63
--- NOTE | 2019-03-14 21:24 | NUR ---
PT REQUESTING SOMETHING FOR PAIN AND SLEEP. ATTEMPTED TO CALL . NO ANSWER. WILL TRY AGAIN.
--- NOTE | 2019-03-14 21:40 | NUR ---
ATTEMPTED TO CALL AGAIN REGARDING PAIN/INSOMNIA MEDICATION. NO ANSWER. WILL ATTEMPT AGAIN.
--- NOTE | 2019-03-14 22:12 | NUR ---
WAS NOW ABLE TO REACH . NEW ORDERS RECEIVED FOR PO NORCO 5/325 BID PRN FOR PAIN & PO AMBIEN 5MG QHS PRN FOR INSOMNIA.
--- NOTE | 2019-03-14 23:45 | NUR ---
REPORT RECEIVED FROM SHADY AZUL. ASSUMING CARE OF THIS PATIENT.
[2019-03-15] VITALS: BP 124/56
--- NOTE | 2019-03-15 05:23 | NUR ---
ÁNGELRENETTA Wynn [id number] Please refer to the physician's history and physical for past medical history, comorbid conditions, and allergies. Diagnosis: CELLULITIS METATARSAL FRACTURE DIABETIC FOOT ULCER Jamaal Score: 21,LOW OR NO RISK WOUND DESCRIPTIONS: Wound Number: 1 Patient has dressing intact partially intact to left foot. Strike through drainage noted. Part of wound exposed but unable to view entire wound necrotic tissue exposed at time of assessment brown in color. Patient states he follows with Dr. Ackerman and will continue to do so when he is discharged. He stated that Dr. Bautista just put stents in his legs and he thought he had athletes feet until the two areas opened up on the bottom of his foot. He stated all of this started about 6 weeks ago. Surface the patient is resting on: Isoflex SKIN PREVENTION RECOMMENDATION: 1. Pressure redistribution support surface as appropriate 2. Elevate heels 3. Remove boots/TEDS every shift and reapply 4. Head of bed 30 degrees as tolerated 5. Assess nutrition and hydration 6. Manage moisture 7. Avoid the use of containment devices while in bed 8. Use absorptive products on surfaces limit layers of linens on bed 9. Turn and reposition every 1-2 hours in bed and every 1 hour in chair as tolerated 10. Weight shifts every 15 minutes while up in chair 11. Offloading with pillows or device to keep heels elevated off bed 12. Monitor skin at least every shift 13. Inspect under medical devices twice a day WOUND TREATMENT RECOMMENDATIONS: Podiatry orders states dressing changes handled by podiatry. Heel raiser pro boots to bilateral feet while in bed.
[2019-03-15 06:15] LABS: BASO % 0.3 % (0.0-1.0); EOS # 0.2 10*3/uL (0.0-0.4); EOS % 2.5 % (1.0-4.0); HEMATOCRIT 46.1 % (42.0-52.0); HEMOGLOBIN 15.5 g/dl (14.0-18.0); LYMPH # 2.3 10*3/uL (1.3-4.4); LYMPH % 26.3 % (27.0-41.0); MEAN CELL VOLUME 92.9 fl (80.0-94.0); MEAN CORPUSCULAR HGB 31.3 pg (27.0-31.0); MEAN CORPUSCULAR HGB CONC 33.6 g/dl (33.0-37.0); MEAN PLATELET VOLUME 9.5 fl (9.6-12.3); MONO # 0.7 10*3/uL (0.1-1.0); MONO % 7.6 % (3.0-9.0); NEUT # 5.6 10*3/uL (2.3-7.9); NEUT % 62.9 % (47.0-73.0); PLATELET COUNT AUTOMATED 282 10*3/uL (130-400); RED BLOOD COUNT 4.96 10*6/uL (4.50-5.90); RED CELL DISTRI WIDTH 12.9 % (0-14.5); WHITE BLOOD COUNT 8.9 10*3/uL (4.8-10.8)
[2019-03-15 06:25] LABS: BUN 16 mg/dl (7-24); CHLORIDE 102 mmol/L (98-107); CREATININE 0.76 mg/dL (0.70-1.30); POTASSIUM 4.2 mmol/L (3.5-5.1); SODIUM 137 mmol/L (136-145)
[2019-03-15 07:55] VITALS: BP 118/55
[2019-03-15 08:00] VITALS: BP 118/56
--- NOTE | 2019-03-15 08:00 | NUR ---
DR CARDENAS IN TO SEE PT. DRSG REMOVED PER DR CARDENAS' REQUEST. SHE ASSESSED WOUND AND MEASUREMENTS TAKEN. DRY DRSG REAPPLIED. PT TOLERATED WELL.
--- NOTE | 2019-03-15 09:00 | NUR ---
Supervisor Wrapping Room in to talk to patient. Patient states lives at home with his . There are 2-10 steps in the home. Physician: Dr. Amarilis Rios Pharmacy: [facility]: has had in the past but doesn't remember the name of the company. He will ask his when she comes in later today. She is currently at home getting their son who has cerebral palsy ready for workshop. Patient's level of ADLs: INDEPENDENT Patient has working utilities: yes DME: prosthetic leg, crutches Follow-up physician's appointment after d/c: he prefers to make his own follow up appt after discharge Does patient want to access PORTAL?: no Discharge plan discussed with patient. He lives at home with his . He is independent in his ADLs and ambulation normally but because he has a boot on his left foot he has been using crutches to be safe. He has a prosthetic RLE. He has had a home health agency in the past but doesn't remember the name of the company at this time but will ask his when she comes in later today. Discussed home health care services if he has to have IV antibiotics at home and he is agreeable. When medically stable he will be discharged to home with home health care services if he needs home IV antibiotics. JEANNETTE MESA
[2019-03-15 16:00] VITALS: BP 136/66
--- NOTE | 2019-03-15 17:09 | NUR ---
BSG TAKEN BY PT 165. INSULIN PUMP INTACT AND RUNNING BY PATIENTS HOME ORDERS. NO S/SO OF HYPO/HYPERGLYCEMIA NOTED. PT ALSO REMINDED HE WILL BE NPO AFTER MIDNIGHT. HE STATES UNDERSTANDING.
[2019-03-15 20:00] VITALS: BP 124/66
[2019-03-16] VITALS (8 sets, daily range): BP systolic 112–138; BP diastolic 54–96
--- NOTE | 2019-03-16 09:03 | NUR ---
IN TO SEE PT.
--- NOTE | 2019-03-16 10:07 | NUR ---
PT DOWN FOR SURGERY.
--- NOTE | 2019-03-16 10:13 | NUR ---
Spoke to Dr. Mcclendon regarding home IV antibiotics. Orders received to check Vancomycin 1500 mg IV BID and Cefepime 2 GM IV Q12H for home. Faxed information and demos to [facility] at [phone]. Awaiting response.
--- NOTE | 2019-03-16 10:18 | NUR ---
Residential Substance Abuse Counselor in to see patient. He is not in his room at this time. He is in surgery. Will follow up at a later time. Discharge plan undecided.
--- NOTE | 2019-03-16 11:57 | NUR ---
Spoke to Marianela at [facility] regarding home IV antibiotic coverage. Vancomycin and Cefepime would be covered at 100% Dr. Mcclendon notified.
--- NOTE | 2019-03-16 13:37 | NUR ---
NURSE TO NURSE REPORT REC'D FROM SURGERY
--- NOTE | 2019-03-16 13:48 | NUR ---
BACK TO ROOM FOLLOWING SURGERY.
--- NOTE | 2019-03-16 14:04 | NUR ---
VSS. NO COMPLAINTS VOICED. CALL LIGHT IN REACH. CAUGHT UP WITH MORNING MEDS. TOELRATED WELL.
--- NOTE | 2019-03-16 14:31 | NUR ---
Farm General Manager in to see patient. Discussed discharge planning and patient states he is staying for a couple of days because the doctor wants to do something else with my foot. Discussed his IV antibiotics outpatient. Discussed home health care services and he is agreeable for his home IV antibiotics. When provided with a list of agencies he chose [facility]. When medically stable he will be discharged to home with home health care services.
--- NOTE | 2019-03-16 20:00 | NUR ---
AWAKE & ALERT RESTING IN BED WITH HOB SLIGHTLY ELEVATED. PULSE OX 95% ON ROOM AIR. PT. VOICES NO C/O AT THIS TIME. CALL LIGHT WITHIN REACH.
--- NOTE | 2019-03-16 21:17 | NUR ---
MEDICATED WITH AMBIEN FOR INSOMNIA.
--- NOTE | 2019-03-16 22:00 | NUR ---
BLOOD SUGAR 185. PT. HAS INSULIN PUMP.
[2019-03-17] VITALS: BP 118/52
--- NOTE | 2019-03-17 06:49 | NUR ---
MEDICATED WITH [facility] FOR C/O PAIN.
[2019-03-17 08:00] VITALS: BP 130/70
--- NOTE | 2019-03-17 08:47 | NUR ---
[facility] is checking patients benefits coverage.
--- NOTE | 2019-03-17 09:00 | NUR ---
Area Development Consultant in to see patient. Discussed LTAC and their locations in [place], [place], and [place]. He declines stating that is too far for his to drive. Discussed short term SNF and he refuses. Discussed home health care services and he is agreeable. When provided with a list of agencies he chose [facility]. Spoke to Dr. Ventura regarding the need for wound vac forms for home to be completed. He verbalized an understanding. When medically stable he will be discharged to home with [facility] services.
--- NOTE | 2019-03-17 09:29 | NUR ---
IN TO SEE PT. WOUND VAC BEING PLACED AT THIS TIME. S/P I&D PICS & MEASUREMENTS TAKEN. CALL LIGHT IN REACH.
--- NOTE | 2019-03-17 09:37 | NUR ---
Agustin stated: out of network. patient has a $6,000 deductable. Out of pocket max is $12,000 with $6,000 remaining. insurance pays 40% until the out of pocket max is met. Agustin stating [facility] in [place] may be in network. will discuss with casework supervisor.
--- NOTE | 2019-03-17 09:41 | NUR ---
Nutritional Support Services Note: Pt ordered a regular diet. BS is elevated. Patient has a wound, diabetic foot ulcer. Recommend an 1800cal diabetic diet with Glucerna po BID. Appetite is good for meals. will follow. Zohreh Wood
--- NOTE | 2019-03-17 10:48 | NUR ---
[facility] GIVEN FOR LEFT FOOT PAIN RATED 6/10. CALL LIGHT IN REACH. WOUND VAC IN TACT. WILL MONITOR.
--- NOTE | 2019-03-17 11:42 | NUR ---
PER PT, PAIN IS BETTER. PAIN RATED 0/10 TO LEFT FOOT FOLLOWING [facility]. [facility] WAS EFFECTIVE FOR COMPLAINTS. CALL LIGHT IN REACH. WILL CONTINUE TO MONITOR.
[2019-03-17 12:00] VITALS: BP 96/82
--- NOTE | 2019-03-17 12:04 | NUR ---
IN TO SEE PT.
--- NOTE | 2019-03-17 13:31 | NUR ---
In to see patient, is at bedside. Explained to patient his insurance is in network with [facility] in [facility]; His insurance would cover [facility] at 100% for 60 days. His stated "he isn't going anywhere!". I explained I just wanted to make sure the information was provided so he could make an informed decision about his discharge plans. He was grateful, but declined to go anywhere execept home. [facility] was notified.
[2019-03-17 16:00] VITALS: BP 131/66
--- NOTE | 2019-03-17 16:18 | NUR ---
NEW ORDER TO START VANCO AND CEFIPIME REC'D FROM . SEE NOV.
[2019-03-17 20:00] VITALS: BP 141/58
--- NOTE | 2019-03-17 20:37 | NUR ---
24 HOUR CHART CHECK COMPLETE.
--- NOTE | 2019-03-17 22:00 | NUR ---
BLOOD SUGAR 164. PT HAS INSULIN PUMP.
--- NOTE | 2019-03-17 22:10 | NUR ---
PRN NORCO ADMINISTERED PRESCRIBED FOR PT COMPLAINT OF 5/10 LEFT FOOT PAIN. WILL CONTINUE TO MONITOR AND REASSESS IN AN HOUR. NO OTHER COMPLAINTS AT THIS TIME. CALL LIGHT AT PTS SIDE.
--- NOTE | 2019-03-17 23:19 | NUR ---
PT ASLEEP. NO SIGNS OF DISCOMFORT OR DISTRESS NOTED. WILL CONTINUE TO MONITOR.
[2019-03-18] VITALS: BP 122/57
[2019-03-18 07:09] LABS: BASO % 0.5 % (0.0-1.0); EOS # 0.3 10*3/uL (0.0-0.4); EOS % 4.1 % (1.0-4.0); HEMATOCRIT 41.6 % (42.0-52.0); HEMOGLOBIN 14.1 g/dl (14.0-18.0); LYMPH # 1.4 10*3/uL (1.3-4.4); LYMPH % 23.2 % (27.0-41.0); MEAN CORPUSCULAR HGB 31.2 pg (27.0-31.0); MEAN CORPUSCULAR HGB CONC 33.9 g/dl (33.0-37.0); MEAN PLATELET VOLUME 9.5 fl (9.6-12.3); MONO # 0.5 10*3/uL (0.1-1.0); MONO % 8.9 % (3.0-9.0); NEUT # 3.8 10*3/uL (2.3-7.9); PLATELET COUNT AUTOMATED 249 10*3/uL (130-400); RED BLOOD COUNT 4.52 10*6/uL (4.50-5.90); RED CELL DISTRI WIDTH 12.5 % (0-14.5)
[2019-03-18 07:42] LABS: BUN 12 mg/dl (7-24); CHLORIDE 107 mmol/L (98-107); POTASSIUM 3.6 mmol/L (3.5-5.1); SODIUM 140 mmol/L (136-145)
[2019-03-18 07:45] LABS: CREATININE 0.61 mg/dL (0.70-1.30)
[2019-03-18 08:00] VITALS: BP 119/52
--- NOTE | 2019-03-18 08:33 | NUR ---
24 HR CHART CHECK COMPLETE
[2019-03-18 12:00] VITALS: BP 94/70
[2019-03-18 13:03] LABS: ACID FAST SPEC PROCESSING Tissue Grinding (.)
[2019-03-18 16:00] VITALS: BP 130/63
[2019-03-18 20:00] VITALS: BP 126/64
[2019-03-19] VITALS: BP 135/65
--- NOTE | 2019-03-19 04:18 | NUR ---
24HR CHART CHECK COMPLETED
[2019-03-19 08:00] VITALS: BP 118/60; BP 130/62
[2019-03-19 12:00] VITALS: BP 132/73
[2019-03-19 16:00] VITALS: BP 132/53
[2019-03-19 20:00] VITALS: BP 135/66
--- NOTE | 2019-03-19 20:00 | NUR ---
Patient resting quietly with no c/o discomfort. Respirations easy and regular. Vital signs stable. No overt distress. WOUND VAC INTACT TO L FOOT AND IS FUNCTIONING as ordered. AIME TEIXEIRA
--- NOTE | 2019-03-19 21:20 | NUR ---
MEDICATED WITH PO AMBIEN ORDERED PER PT REQUEST FOR C/O INSOMNIA.
[2019-03-20] VITALS: BP 131/58
--- NOTE | 2019-03-20 00:36 | NUR ---
24 HR chart check completed.
--- NOTE | 2019-03-20 03:30 | NUR ---
Patient resting quietly with no c/o discomfort. Respirations easy and regular. Vital signs stable. No overt distress. AIME TEIXEIRA
[2019-03-20 08:00] VITALS: BP 113/70
--- NOTE | 2019-03-20 08:21 | NUR ---
E Commerce Strategist in to see patient. Discussed wound vac paperwork to be completed by podiatry and as soon as paperwork is received authorization for wound vac at home can be started. Dr. Ventura and Dr. Rios notified.
[2019-03-20 12:00] VITALS: BP 115/59
--- NOTE | 2019-03-20 12:43 | NUR ---
Notified Marianela at [facility] patient is still in house.
--- NOTE | 2019-03-20 13:48 | NUR ---
Received completed wound vac from Dr. Ventura. Spoke to [facility] regarding needing a signature from Dr. Ventura's attending to start auth for patient's home wound vac. Dr. Ackerman is in [place] today. Faxed wound vac paperwork to [phone]. Awaiting response.
--- NOTE | 2019-03-20 14:53 | NUR ---
Received sign [facility] wound vac from Dr. Ackerman. Faxed form to [facility]. Awaiting response.
--- NOTE | 2019-03-20 15:04 | NUR ---
Notified patient and Dr. Ventura who is currently in the room changing the patient's wound vac regarding receiving completed [employer] forms and sending those to [facility] for approval. Nurse notified.
--- NOTE | 2019-03-20 15:11 | NUR ---
PODIATRY RESIDENT IN TO SEE PT AND WOUND VAC DRESSING CHANGED BY HIM.
[2019-03-20 16:00] VITALS: BP 116/71
[2019-03-20 20:00] VITALS: BP 124/56
--- NOTE | 2019-03-20 22:11 | NUR ---
PT MEDICATED WITH AMBIEN PER ORDER FOR COMPLAINTS OF INSOMNIA. WILL REASSESS. PT LYING IN BED AT THIS TIME, NO NEW NEEDS IDENTIFIED. CALL LIGHT IN REACH.
[2019-03-21] VITALS: BP 110/51
--- NOTE | 2019-03-21 | NUR ---
RODRICK APPEARS EFFECTIVE. PT SLEEPING AT THIS TIME. CALL LIGHT IN REACH.
--- NOTE | 2019-03-21 04:14 | NUR ---
24 HR chart check completed.
--- NOTE | 2019-03-21 07:15 | NUR ---
Patient resting quietly with no c/o discomfort. Respirations easy and regular. Vital signs stable. No overt distress. AIME TEIXEIRA 24 HR chart check completed.
[2019-03-21 07:28] LABS: BUN 16 mg/dl (7-24); CREATININE 0.69 mg/dL (0.70-1.30)
[2019-03-21 08:00] VITALS: BP 122/55
--- NOTE | 2019-03-21 08:08 | NUR ---
Spoke to Brady at [facility] regarding wound vac status. Awaiting return call from intake pharmaceutical service representative. Brady states all relevant information has been received and is being processed.
--- NOTE | 2019-03-21 08:43 | NUR ---
Decating Machine Operator in to see patient. Discussed waiting on approval of wound vac. He verbalized an understanding. Dr. Rios notified. When all equipment has been obtained he will be discharged to home with [facility], [facility] for his IV antibiotics, and the [facility] wound vac.
--- NOTE | 2019-03-21 10:21 | NUR ---
Gabriela from [employer] here to speak to patient. at bedside. Copied prescriptions from Dr. Mcclendon and gave to Gabriela as she is faxing papers to the office. IV Vancomycin 1750 q8h adjust twice daily (pharmacy to dose) - 6 weeks. Rocephin 2 gm IV daily for 3 weeks. Spoke ot patient regarding waiting for wound vac approval.
--- NOTE | 2019-03-21 11:58 | NUR ---
Spoke to Tsering at [place]. Tsering states patient should not stay in the hospital waiting for a wound vac. Insurance has 15 days to approve or deny. Instructed spoke to Brady at [facility] this morning and the case was supposed to be expedited. Tsering states it has not been expedited. Will call [facility].
[2019-03-21 12:00] VITALS: BP 124/60
--- NOTE | 2019-03-21 12:00 | NUR ---
Patient resting quietly with no c/o discomfort. Respirations easy and regular. Vital signs stable. No overt distress. AIME TEIXEIRA
--- NOTE | 2019-03-21 12:04 | NUR ---
Spoke to Gabriela from [employer]. [employer] is having difficulty in transcribing the TID Vanco into BID Vanco. [employer] pharmacist spoke to Dr. Mcclendon and received verbal order to change Vanc to Dapto. Patient will continue on Rocephin.
--- NOTE | 2019-03-21 12:05 | NUR ---
LAB CALLED WITH CRITICAL VANCO TROUGH. [facility] PHARMACIST NOTIFIED.
--- NOTE | 2019-03-21 12:11 | NUR ---
Spoke to David at [facility] regarding wound vac delivery. She states they are awaiting confirmation for delivery. [facility] is attempting to reach patient at home. Instructed patient remains in the hospital at this time, and wound vac should be delivered to the hospital. Information changed in [facility] system. Awaiting call for delivery time. Patient notified.
--- NOTE | 2019-03-21 15:10 | NUR ---
Continue to wait for wound vac. [facility] states it is in delivery.
--- NOTE | 2019-03-21 15:15 | NUR ---
Spoke to patient regarding [employer] stating wound vac is out for delivery. He states [facility] called his house and have the IV antibiotic infusions to start in the am. Instructed not to worry about that if he is still here in the morning CM will speak to [facility]. He verbalized an understanding.
--- NOTE | 2019-03-21 16:00 | NUR ---
DR ALCOCER STATES NOT TO REMOVE CURRENT WOUND DRESSING TO LEFT FOOT BECAUSE THE WOUND VAC FOR HOME FITS THE CURRENT SYSTEM, THEREFORE D/C PHOTOS ARE NOT TAKEN. NEW SYSTEM IS ATTACHED AND FUNCTIONING.
--- NOTE | 2019-03-21 17:59 | NUR ---
PT LEAVING IN CARE OF WITH ALL WOUND CARE SUPPLIES.
[2019-03-27 14:04] LABS: ANAEROBE RESULT 2 Finegoldia magna (.)
[2019-03-27 14:04] LABS: ANAEROBE RESULT 1 Finegoldia magna (.)
[2019-04-27] MEDS ORDERED: XARELTO10 MG PO (09:51)
[2019-04-27] MEDS ORDERED: DOXYCYCLINE100 M3 PO (09:52)
[2019-04-27] MEDS ORDERED: TRAMADOL HCL50 MG PO (09:53)
[2019-04-27 11:09] LABS: ACID FAST CULTURE Negative (.)
[2019-05-17] MEDS ORDERED: DOXYCYCLINE100 M3 PO (09:18)
[2019-05-17] MEDS ORDERED: XARELTO10 MG PO (09:18)
[2019-05-17] MEDS ORDERED: ULTRAM50 MG PO (09:19)
== END 2019-03-21 17:59 | disposition home or self-care (01) | DRG 629 ==
LOC: ED 09:17 → EDHOLD 10:59 → 5E 10:59
PROVIDERS: Physician Assistant; Podiatrist; ADMIT Internal Medicine
PROC: 0QBP0ZX Excision of Left Metatarsal, Open Approach, Diagnostic (ICD-10-PCS; principal; 2019-03-16)
PROC: 05H533Z Insertion of Infusion Device into Right Subclavian Vein, Percutaneous Approach (ICD-10-PCS; principal; 2019-03-16)
DX: E10.621 Type 1 diabetes mellitus with foot ulcer (principal); L03.116 Cellulitis of left lower limb; E10.52 Type 1 diabetes mellitus with diabetic peripheral angiopathy with gangrene; L02.612 Cutaneous abscess of left foot; M00.9 Pyogenic arthritis, unspecified; L97.523 Non-pressure chronic ulcer of other part of left foot with necrosis of muscle; S92.355A Nondisplaced fracture of fifth metatarsal bone, left foot, initial encounter for closed fracture; I10 Essential (primary) hypertension; I25.10 Atherosclerotic heart disease of native coronary artery without angina pectoris; K21.9 Gastro-esophageal reflux disease without esophagitis; E66.09 Other obesity due to excess calories; Z88.2 Allergy status to sulfonamides; Z88.8 Allergy status to other drugs, medicaments and biological substances; Z79.82 Long term (current) use of aspirin; Z79.899 Other long term (current) drug therapy; Z79.4 Long term (current) use of insulin; Z95.1 Presence of aortocoronary bypass graft; Z95.820 Peripheral vascular angioplasty status with implants and grafts; Z87.81 Personal history of (healed) traumatic fracture; Z79.02 Long term (current) use of antithrombotics/antiplatelets; Z68.30 Body mass index [BMI] 30.0-30.9, adult; Z89.511 Acquired absence of right leg below knee; X58.XXXA Exposure to other specified factors, initial encounter; Y93.89 Activity, other specified; Y92.89 Other specified places as the place of occurrence of the external cause; Y99.8 Other external cause status

== ENCOUNTER → 2019-04-27 | Day surgery (SDC) | payer BC ==
[2019-04-21 14:36] VITALS: BP 112/63
[~2019-04-27] VITALS: Ht 200.6 cm; Wt 122.5 kg
[~2019-04-27] MED LIST changes: +ALDACTONE25 M1 PO; +DOXYCYCLINE100 M3 PO; +ENTRESTO 24 MG1 EACH PO; +LASIX40 MG PO; +LIPITOR80 MG PO; +PLAVIX75 M1 PO; +TRAMADOL HCL50 MG PO; +ULTRAM50 MG PO; +XARELTO10 MG PO
--- NOTE | ~2019-04-27 | EKG ---
[place], [place] ELECTROCARDIOGRAM REPORT NAME: RENETTA NEAL UNIT #: [id number] ROOM: DOCTOR: EPIPHANY DRAFT REPORT BIRTHDATE: [birth year] [facility] Test Date: 2019-04-21 Test Time: 15:19:42 Pat Name: RENETTA NEAL Department: Room: Gender: Material Handler: : 1955 Requested By: KOBI IRAHETA Order Number: [id number] Reading MD: Efren Foley MD Measurements Intervals [place] Rate: 82 P: 72 OR: 191 QRS: 46 QRSD: 97 T: 43 QT: 376 QTc: 439 Interpretive Statements Sinus rhythm Probable left atrial enlargement Anterior infarct, old Minimal ST depression, lateral leads No previous ECG available for comparison Electronically Signed On 04-24-2019 8:39:48 PDT by Efren Foley MD CM:EKGRPT:ELECTROCARDIOGRAM REPORT [id number] KOBI IRAHETA DPM EPIPHANY DRAFT REPORT KOBI IRAHETA DPM
--- NOTE | ~2019-04-27 | WRIGHTHP ---
[place], [place] PATIENT HISTORY AND PHYSICAL EXAM [id number] UN[facility] #: [id number] ROOM: DOCTOR: KOBI IRAHETA DPM BIRTHDATE: [birth year] DOS: 04/27/2019 LOWER EXTREMITY PHYSICAL EXAMINATION: VASCULAR: He has adequate blood flow to his left lower extremity. NEUROLOGIC: He has loss of sensation secondary to diabetic peripheral neuropathy. DERMATOLOGIC: He has an open wound that measures 8 x 6 cm ____ on the bone second metatarsal but otherwise the tissue is pink ____. ORTHOPEDIC EXAM: Consistent with osteomyelitis of the left second metatarsal. KOBI IRAHETA DPM CM:HISPHYS:PATIENT HISTORY AND PHYSICAL EXAMINATION 0922 1040 KOBI IRAHETA DPM 05/11/19 0657 interface
--- NOTE | ~2019-04-27 | WRIGHTHP ---
[place], [place] PATIENT HISTORY AND PHYSICAL EXAM [id number] UNIT #: [id number] ROOM: DOCTOR: KOBI IRAHETA DPM BIRTHDATE: [birth year] DOS: 04/27/2019 The patient is seen for diabetic wound on left plantar foot. He has a history of BK amputation on the right side. He has exposed bone at second metatarsal left consistent with chronic osteomyelitis, left. He is here for debridement, application of the graft and wound VAC. He is aware of pros, cons, risks, benefits overcorrection, undercorrection, recurrence, infection, worsening limb loss, DVT, PE, ____ amputation and limb salvage. He understands that. Despite this, he signed consent, understands preoperative management and understands the procedures being done today. KOBI IRAHETA DPM CM:HISPHYS:PATIENT HISTORY AND PHYSICAL EXAMINATION 1 1038 KOBI IRAHETA DPM 05/11/19 0657 interface
--- NOTE | ~2019-04-27 | O ---
[place], [place] OPERATIVE NOTE NAME: RENETTA NEAL [place] UNIT #: [id number] ROOM: DOCTOR: KOBI IRAHETA DPM BIRTHDATE: [birth year] DOS: 04/27/2019 SURGEON: Kobi Iraheta DPM ASSISTANTS: 1. Dr. Zaki Choi. 2. Jose D Braden, PGY3 3. Yulissa Chavez, PGY1. PREOPERATIVE DIAGNOSIS: Osteomyelitis, left foot. POSTOPERATIVE DIAGNOSIS: Osteomyelitis, left foot. PROCEDURES: 1. Incision and drainage, bone debridement, second metatarsal left. 2. Application of Integra graft 2 x 2 inch. 3. Application of wound VAC negative pressure therapy. DESCRIPTION OF PROCEDURE: The patient was seen in preoperative holding area. Appropriate site marking performed. The patient and his family concurred with the preoperative management. He was brought to OR, placed on the well-padded OR table and anesthesia was achieved. Once the anesthesia was achieved, appropriate timeout was performed, everybody in the room concurred. At this point in time: PROCEDURE 1: INCISION, DRAINAGE, BONE DEBRIDEMENT AND BONE BIOPSY SECOND METATARSAL, LEFT. At this time, using a rongeur, bone was debrided extensively, resected bone sent down to bone for aerobic, anaerobic, fungal, acid fast culture and biopsy. Once this was performed, we proceeded to procedure number 2. PROCEDURE #2: APPLICATION OF INTEGRA GRAFT: A 2 x 2 inch piece of Integra graft was applied. This was fenestrated and stapled to the tissue. PROCEDURE #3: APPLICATION OF NEGATIVE PRESSURE THERAPY AND WOUND VAC: At this time in the usual sterile fashion was performed and negative pressure therapy wound VAC was applied to his left lower extremity set at 200 continuous. We will discontinue home health care and sent home on doxycycline 100 mg twice a day. He is to stay off it, nonweightbearing. He is to follow-up 1 week in our office. The patient was seen in the recovery room, tolerates the procedure and anesthesia well and left the OR with vital signs stable and vascular status intact. [place], [place] OPERATIVE NOTE NAME: NEALRENETTA UNIT #: [id number] ROOM: DOCTOR: KOBI IRAHETA DPM BIRTHDATE: [birth year] KOBI IRAHETA DPM CM:OPRECORD:OPERATIVE NOTE 0922 1047 KOBI IRAHETA DPM 05/11/19 0657 interface
[2019-04-27 08:13] VITALS: BP 124/85
[2019-04-27 09:05] VITALS: BP 115/62
[2019-04-27 09:20] VITALS: BP 124/63
[2019-04-27 09:35] VITALS: BP 135/62
[2019-04-28 17:07] LABS: ACID FAST SPEC PROCESSING Tissue Grinding (.)
== END | disposition home or self-care (01) ==
LOC: SDC 04-21 14:00
PROVIDERS: Podiatrist
DX: M86.8X7 Other osteomyelitis, ankle and foot (principal); M86.672 Other chronic osteomyelitis, left ankle and foot; E11.9 Type 2 diabetes mellitus without complications; E78.5 Hyperlipidemia, unspecified; I10 Essential (primary) hypertension; K21.9 Gastro-esophageal reflux disease without esophagitis; I25.2 Old myocardial infarction; Z98.890 Other specified postprocedural states; Z79.82 Long term (current) use of aspirin; Z79.84 Long term (current) use of oral hypoglycemic drugs; Z79.899 Other long term (current) drug therapy; Z88.8 Allergy status to other drugs, medicaments and biological substances; Z80.42 Family history of malignant neoplasm of prostate

== ENCOUNTER → 2019-05-17 | Day surgery (SDC) | payer BC ==
[~2019-05-17] VITALS: Ht 200.6 cm; Wt 122.5 kg
--- NOTE | ~2019-05-17 | WRIGHTHP ---
[place], [place] PATIENT HISTORY AND PHYSICAL EXAM [id number] UNIT #: [id number] ROOM: DOCTOR: KOBI IRAHETA DPM BIRTHDATE: [birth year] DOS: 05/17/2019 INDICATIONS: The patient suffers from a BKA on the right side and also diabetic foot ulcer wound on the left. His wound measures 6.4 x 6.5, full thickness in nature. There are no cardinal signs of infection, drainage, foul odor undermining or tunneling noted at this time on the left plantar foot. He is set for surgery and understands pros, cons, risks, benefits overcorrection, under correction, ____, limb loss, , DVT, PE, limb loss, etc. At this time, he understands anything can happen; nothing should happen. With this, he is set for surgery, agrees with perioperative management, agreed with the site marking, and agreed with the surgical consent. Operative surgery consisting of a split thickness skin graft harvesting from the left thigh applied to the left foot. KOBI IRAHETA DPM CM:HISPHYS:PATIENT HISTORY AND PHYSICAL EXAMINATION 0952 1033 KOBI IRAHETA DPM 05/17/19 1233 interface
--- NOTE | ~2019-05-17 | O ---
[place], [place] OPERATIVE NOTE [id number] UNIT #: [id number] ROOM: DOCTOR: KOBI IRAHETA DPM BIRTHDATE: [birth year] DOS: 05/17/2019 SURGEON: Kobi Iraheta DPM. ASSISTANTS: 1. Zaki hCoi, fellow. 2. Tyler Mitchell, PGY-3. PREOPERATIVE DIAGNOSES: Diabetic foot ulcer open wound, left plantar foot measures that 6.4 x 6.5 on the left. POSTOPERATIVE DIAGNOSES: Diabetic foot ulcer open wound, left plantar foot measures that 6.4 x 6.5 on the left. PROCEDURES: 1. Harvesting skin graft from his left thigh and applying a split thickness graft to his left foot following the debridement, harvesting skin graft from his left thigh. 2. Full thickness debridement of the left foot and application of split-thickness skin graft. The patient was seen in preop holding area. Appropriate site marking was performed. The patient agreed concurred with the perioperative management, site marking, and consent. He was brought to OR and placed on well-padded OR table where anesthesia was achieved. Once anesthesia was achieved, his left leg were prepped and draped in usual sterile fashion as well as his thigh. PROCEDURE #1: DEBRIDEMENT OF LEFT FOOT WOUND: A full thickness sharp excisional debridement was performed using a curette and a rongeur excising tissue. Tissue was sent for Gram stain, aerobic, anaerobic, fungal acid as well as a biopsy of the left plantar foot. The tissues were irrigated. Tissues were pink, healthy and clean and there were no cardinal signs of infection. No sinus tract or undermining or tunneling noted. PROCEDURE #2: HARVESTING SKIN GRAFT ON THE LEFT THIGH: Mineral oil was applied to the left thigh. At this point in time, the dermatome was set ____ of an inch and a 2 inch blade was used and at this time, with mineral oil, the skin was harvested from his left thigh. This was applied to 1.5:1 cart and was put through ____. PROCEDURE #3: This tissue that was transferred to the plantar aspect of the left foot and this was stapled to the tissues under nice physiological tension ____ very nicely to fit very nicely to his foot. This was then dressed with mineral oil, Adaptic, 4 x 4s, Georgi in a sterile compressive fashion with his left lower extremity and relative to his left thigh. Xeroform and Op-Site was applied to his left thigh. He tolerated the procedure and anesthesia well and left the OR with vital signs stable and vascular intact. [place], [place] OPERATIVE NOTE NAME: RENETTA NEAL UNIT #: [id number] ROOM: DOCTOR: KOBI IRAHETA DPM BIRTHDATE: [birth year] KOBI IRAHETA DPM CM:OPRECORD:OPERATIVE NOTE [id number] 1037 KOBI IRAHETA DPM 05/17/19 1334 interface
--- NOTE | ~2019-05-17 | WRIGHTHP ---
[place], [place] PATIENT HISTORY AND PHYSICAL EXAM [id number] UNIT #: [id number] ROOM: DOCTOR: KOBI IRAHETA DPM BIRTHDATE: [birth year] DOS: 05/17/2019 LOWER EXTREMITY PHYSICAL EXAM VASCULAR: He has intact pedal pulses of the left lower extremity with good cap refill time. NEUROLOGICAL: He has complete loss of protective sensation secondary to diabetic peripheral neuropathy. DERMATOLOGIC: He has an open wound that exhibits no cardinal signs of infection. It is pink, healthy granular tissue with some fibrous tissue noted. The wound measures 6.4 x 6.5, it is full thickness in nature. No undermining or tunneling noted. ORTHOPEDIC EXAM: Consistent with previous history of bone infection of his left foot. Again, no cardinal signs of infection today at this time. KOBI IRAHETA DPM CM:HISPHYS:PATIENT HISTORY AND PHYSICAL EXAMINATION 0952 1034 KOBI IRAHETA DPM 05/17/19 1230 interface
[2019-05-17 07:53] VITALS: BP 139/72
[2019-05-17 08:58] VITALS: BP 111/64
[2019-05-17 09:15] VITALS: BP 120/66
[2019-05-17 09:35] VITALS: BP 114/62
[2019-05-18 12:06] LABS: ACID FAST SPEC PROCESSING Tissue Grinding (.)
== END | disposition home or self-care (01) ==
LOC: SDC 05-15 14:45
PROVIDERS: Podiatrist
DX: E11.621 Type 2 diabetes mellitus with foot ulcer (principal); L97.522 Non-pressure chronic ulcer of other part of left foot with fat layer exposed; I10 Essential (primary) hypertension; E11.9 Type 2 diabetes mellitus without complications; K21.9 Gastro-esophageal reflux disease without esophagitis; I25.2 Old myocardial infarction; Z85.46 Personal history of malignant neoplasm of prostate; Z98.890 Other specified postprocedural states; Z79.899 Other long term (current) drug therapy; Z79.84 Long term (current) use of oral hypoglycemic drugs; Z88.8 Allergy status to other drugs, medicaments and biological substances

== ENCOUNTER → 2019-10-02 | Outpatient (CLI) | payer BC ==
[2019-10-02 09:46] LABS: BUN 16 mg/dl (7-24); CHLORIDE 102 mmol/L (98-107); CREATININE 1.02 mg/dL (0.70-1.30); POTASSIUM 4.1 mmol/L (3.5-5.1); SODIUM 137 mmol/L (136-145)
== END | disposition home or self-care (01) ==
LOC: LAB 08:47
DX: Z12.5 Encounter for screening for malignant neoplasm of prostate (principal); I25.5 Ischemic cardiomyopathy

== ENCOUNTER → 2019-11-01 | Outpatient (CLI) | payer BC | END | disposition home or self-care (01) | LOC: RAD 14:40 | DX: J43.8 Other emphysema (principal); E11.9 Type 2 diabetes mellitus without complications; Z87.891 Personal history of nicotine dependence ==

== ENCOUNTER → 2019-11-16 | Outpatient (CLI) | payer BC | END | disposition home or self-care (01) | LOC: CT 00:39 | DX: K40.90 Unilateral inguinal hernia, without obstruction or gangrene, not specified as recurrent (principal); J98.11 Atelectasis; R31.9 Hematuria, unspecified; I70.0 Atherosclerosis of aorta; I70.8 Atherosclerosis of other arteries ==

== ENCOUNTER → 2020-02-22 | Outpatient (CLI) | payer BC ==
[2020-02-22 08:42] LABS: BASO % 0.3 % (0.0-1.0); EOS # 0.2 10*3/uL (0.0-0.4); EOS % 1.7 % (1.0-4.0); HEMATOCRIT 51.7 % (42.0-52.0); LYMPH # 2.7 10*3/uL (1.3-4.4); LYMPH % 27.7 % (27.0-41.0); MEAN CORPUSCULAR HGB 31.5 pg (27.0-31.0); MEAN CORPUSCULAR HGB CONC 34.2 g/dl (33.0-37.0); MEAN PLATELET VOLUME 9.3 fl (9.6-12.3); MONO # 0.8 10*3/uL (0.1-1.0); MONO % 8.1 % (3.0-9.0); NEUT # 6.1 10*3/uL (2.3-7.9); NEUT % 61.8 % (47.0-73.0); PLATELET COUNT AUTOMATED 338 10*3/uL (130-400); RED BLOOD COUNT 5.62 10*6/uL (4.50-5.90); RED CELL DISTRI WIDTH 13.2 % (0-14.5); WHITE BLOOD COUNT 9.9 10*3/uL (4.8-10.8)
[2020-02-22 09:02] LABS: ALBUMIN 3.1 gm/dl (3.1-4.5); BUN 18 mg/dl (7-24); CHLORIDE 99 mmol/L (98-107); CREATININE 0.84 mg/dL (0.70-1.30); POTASSIUM 4.1 mmol/L (3.5-5.1); SGOT/AST 17 IU/L (3-35); SGPT/ALT 27 U/L (12-78); SODIUM 131 mmol/L (136-145); TOTAL PROTEIN 7.2 gm/dL (6.4-8.2)
[2020-02-22 09:04] LABS: ALKALINE PHOSPHATASE 102 U/L (45-117)
== END ==
LOC: LAB 08:06
PROVIDERS: Nurse Practitioner Family
DX: C61 Malignant neoplasm of prostate (principal); R53.83 Other fatigue

== ENCOUNTER → 2020-03-22 | Outpatient (CLI) | payer BC | END | disposition home or self-care (01) | LOC: COVID19 02:22 | DX: Z01.818 Encounter for other preprocedural examination (principal); Z11.59 Encounter for screening for other viral diseases ==

== ENCOUNTER 2020-04-03 16:03 | Inpatient (IN) | payer BC ==
[~2020-04-03] VITALS: Ht 200.6 cm; Wt 126.8 kg
[2020-04-03 16:18] VITALS: BP 110/74
[2020-04-03] MEDS ORDERED: CIPROFLOXACIN500 M4 PO (16:19)
[2020-04-03 18:22] LABS: BASO % 0.3 % (0.0-1.0); EOS # 0.1 10*3/uL (0.0-0.4); EOS % 1.4 % (1.0-4.0); HEMATOCRIT 49.1 % (42.0-52.0); LYMPH % 34.5 % (27.0-41.0); MEAN CELL VOLUME 88.3 fl (80.0-94.0); MEAN CORPUSCULAR HGB 30.6 pg (27.0-31.0); MEAN CORPUSCULAR HGB CONC 34.6 g/dl (33.0-37.0); MEAN PLATELET VOLUME 9.3 fl (9.6-12.3); MONO # 0.8 10*3/uL (0.1-1.0); MONO % 8.8 % (3.0-9.0); NEUT # 4.7 10*3/uL (2.3-7.9); NEUT % 54.8 % (47.0-73.0); PLATELET COUNT AUTOMATED 344 10*3/uL (130-400); RED BLOOD COUNT 5.56 10*6/uL (4.50-5.90); RED CELL DISTRI WIDTH 12.6 % (0-14.5); WHITE BLOOD COUNT 8.7 10*3/uL (4.8-10.8)
[2020-04-03 18:38] LABS: ALBUMIN 2.9 gm/dl (3.1-4.5); ALKALINE PHOSPHATASE 112 U/L (45-117); BUN 19 mg/dl (7-24); CHLORIDE 106 mmol/L (98-107); CREATININE 0.82 mg/dL (0.70-1.30); POTASSIUM 3.8 mmol/L (3.5-5.1); SGOT/AST 23 IU/L (3-35); SGPT/ALT 31 U/L (12-78); SODIUM 135 mmol/L (136-145); TOTAL PROTEIN 7.2 gm/dL (6.4-8.2)
[2020-04-03 21:15] VITALS: BP 133/57
[2020-04-03 21:45] VITALS: BP 140/67
[2020-04-04] VITALS (8 sets, daily range): BP systolic 109–153; BP diastolic 54–69
[2020-04-05] VITALS: BP 116/57
[2020-04-05 08:00] VITALS: BP 117/53
[2020-04-05 12:00] VITALS: BP 116/47
[2020-04-05 12:11] LABS: ACID FAST SPEC PROCESSING Tissue Grinding (.)
[2020-04-05 16:00] VITALS: BP 121/51
[2020-04-05 20:00] VITALS: BP 129/56
[2020-04-06] VITALS: BP 128/57
[2020-04-06 06:08] LABS: BASO % 0.4 % (0.0-1.0); EOS # 0.3 10*3/uL (0.0-0.4); EOS % 4.3 % (1.0-4.0); HEMATOCRIT 45.3 % (42.0-52.0); LYMPH # 2.2 10*3/uL (1.3-4.4); LYMPH % 31.6 % (27.0-41.0); MEAN CELL VOLUME 90.6 fl (80.0-94.0); MEAN CORPUSCULAR HGB 30.4 pg (27.0-31.0); MEAN CORPUSCULAR HGB CONC 33.6 g/dl (33.0-37.0); MEAN PLATELET VOLUME 9.2 fl (9.6-12.3); MONO # 0.6 10*3/uL (0.1-1.0); MONO % 8.9 % (3.0-9.0); NEUT # 3.8 10*3/uL (2.3-7.9); NEUT % 54.5 % (47.0-73.0); PLATELET COUNT AUTOMATED 265 10*3/uL (130-400); RED CELL DISTRI WIDTH 12.9 % (0-14.5); WHITE BLOOD COUNT 7.1 10*3/uL (4.8-10.8)
[2020-04-06 06:39] LABS: BUN 16 mg/dl (7-24); CHLORIDE 109 mmol/L (98-107); CREATININE 0.79 mg/dL (0.70-1.30); SODIUM 139 mmol/L (136-145)
[2020-04-06 08:00] VITALS: BP 139/53
[2020-04-06 12:00] VITALS: BP 138/59
[2020-04-06 16:00] VITALS: BP 135/59
[2020-04-06 20:00] VITALS: BP 141/64
[2020-04-07] VITALS: BP 123/58
[2020-04-07 08:00] VITALS: BP 138/68
[2020-04-07 12:00] VITALS: BP 143/61
[2020-04-07 16:00] VITALS: BP 134/58
[2020-04-07 20:00] VITALS: BP 126/57
[2020-04-08] VITALS: BP 121/64
[2020-04-08 08:00] VITALS: BP 134/59
[2020-04-08 12:00] VITALS: BP 128/60
[2020-04-08] MEDS ORDERED: TRAMADOL HCL50 MG PO (13:05)
[2020-04-08 16:00] VITALS: BP 131/58
[2020-04-08] MEDS ORDERED: ZYVOX600 MG PO (16:20)
== END 2020-04-08 21:04 | disposition home or self-care (01) | DRG 629 ==
LOC: ED 16:03 → EDHOLD 21:02 → 5E 21:02
PROVIDERS: Nurse Practitioner Family; Podiatrist; ADMIT Internal Medicine
DX: E10.621 Type 1 diabetes mellitus with foot ulcer (principal); L03.116 Cellulitis of left lower limb; E44.1 Mild protein-calorie malnutrition; M86.272 Subacute osteomyelitis, left ankle and foot; I10 Essential (primary) hypertension; L97.529 Non-pressure chronic ulcer of other part of left foot with unspecified severity; I25.10 Atherosclerotic heart disease of native coronary artery without angina pectoris; E10.42 Type 1 diabetes mellitus with diabetic polyneuropathy; M84.375A Stress fracture, left foot, initial encounter for fracture; Z96.1 Presence of intraocular lens; B95.2 Enterococcus as the cause of diseases classified elsewhere; X58.XXXA Exposure to other specified factors, initial encounter; Y93.89 Activity, other specified; Y92.89 Other specified places as the place of occurrence of the external cause; Y99.8 Other external cause status; Z95.1 Presence of aortocoronary bypass graft; Z89.511 Acquired absence of right leg below knee; Z88.2 Allergy status to sulfonamides; Z79.899 Other long term (current) drug therapy; Z79.02 Long term (current) use of antithrombotics/antiplatelets; Z79.82 Long term (current) use of aspirin; Z98.41 Cataract extraction status, right eye

== ENCOUNTER → 2020-04-25 | Outpatient (CLI) | payer BC ==
[~2020-04-25] MED LIST changes: +CIPROFLOXACIN500 M4 PO; +ZYVOX600 MG PO
== END | disposition home or self-care (01) ==
LOC: LAB 11:09
DX: M86.171 Other acute osteomyelitis, right ankle and foot (principal); M86.172 Other acute osteomyelitis, left ankle and foot

== ENCOUNTER → 2020-05-28 | Outpatient (CLI) | payer BC | END | disposition home or self-care (01) | LOC: LAB 11:43 | PROVIDERS: ATTEND Internal Medicine | DX: M86.172 Other acute osteomyelitis, left ankle and foot (principal) ==

== ENCOUNTER → 2020-08-23 | Outpatient (CLI) | payer BC ==
[2020-08-23 10:08] LABS: BASO % 0.3 % (0.0-1.0); EOS # 0.1 10*3/uL (0.0-0.4); EOS % 1.5 % (1.0-4.0); HEMATOCRIT 51.1 % (42.0-52.0); LYMPH # 2.3 10*3/uL (1.3-4.4); LYMPH % 26.8 % (27.0-41.0); MEAN CELL VOLUME 92.4 fl (80.0-94.0); MEAN CORPUSCULAR HGB 30.7 pg (27.0-31.0); MEAN CORPUSCULAR HGB CONC 33.3 g/dl (33.0-37.0); MEAN PLATELET VOLUME 9.5 fl (9.6-12.3); MONO # 0.7 10*3/uL (0.1-1.0); MONO % 7.5 % (3.0-9.0); NEUT # 5.6 10*3/uL (2.3-7.9); NEUT % 63.7 % (47.0-73.0); PLATELET COUNT AUTOMATED 291 10*3/uL (130-400); RED BLOOD COUNT 5.53 10*6/uL (4.50-5.90); RED CELL DISTRI WIDTH 12.8 % (0-14.5); WHITE BLOOD COUNT 8.7 10*3/uL (4.8-10.8)
[2020-08-23 10:45] LABS: ALBUMIN 3.1 gm/dl (3.1-4.5); ALKALINE PHOSPHATASE 105 U/L (45-117); BUN 23 mg/dl (7-24); CHLORIDE 100 mmol/L (98-107); CREATININE 0.84 mg/dL (0.70-1.30); POTASSIUM 4.6 mmol/L (3.5-5.1); SGOT/AST 26 IU/L (3-35); SGPT/ALT 43 U/L (12-78); SODIUM 134 mmol/L (136-145); TOTAL PROTEIN 7.1 gm/dL (6.4-8.2)
== END | disposition home or self-care (01) ==
LOC: LAB 09:53
PROVIDERS: ATTEND Urology
DX: C61 Malignant neoplasm of prostate (principal); R53.83 Other fatigue

== ENCOUNTER → 2020-08-28 | Outpatient (CLI) | payer BC | END | disposition home or self-care (01) | LOC: COVID19 08:06 | PROVIDERS: ATTEND Podiatrist | DX: Z01.812 Encounter for preprocedural laboratory examination (principal); Z20.828 Contact with and (suspected) exposure to other viral communicable diseases ==

== ENCOUNTER → 2020-10-23 | Outpatient (CLI) | payer BC | END | disposition home or self-care (01) | LOC: COVID19 08:01 | PROVIDERS: ATTEND Podiatrist Foot & Ankle Surgery | DX: Z01.812 Encounter for preprocedural laboratory examination (principal); Z20.822 Contact with and (suspected) exposure to COVID-19 ==

== ENCOUNTER → 2020-12-06 | Outpatient (CLI) | payer BC ==
[2020-12-06 07:19] LABS: BASO # 0.1 10*3/uL (0.0-0.1); BASO % 0.5 % (0.0-1.0); EOS # 0.2 10*3/uL (0.0-0.4); EOS % 2.2 % (1.0-4.0); HEMATOCRIT 52.3 % (42.0-52.0); LYMPH % 29.1 % (27.0-41.0); MEAN CELL VOLUME 91.3 fl (80.0-94.0); MEAN CORPUSCULAR HGB 30.7 pg (27.0-31.0); MEAN CORPUSCULAR HGB CONC 33.7 g/dl (33.0-37.0); MONO # 0.9 10*3/uL (0.1-1.0); MONO % 8.9 % (3.0-9.0); NEUT % 58.9 % (47.0-73.0); PLATELET COUNT AUTOMATED 337 10*3/uL (130-400); RED BLOOD COUNT 5.73 10*6/uL (4.50-5.90); RED CELL DISTRI WIDTH 13.8 % (0-14.5); WHITE BLOOD COUNT 10.2 10*3/uL (4.8-10.8)
[2020-12-06 08:00] LABS: ALBUMIN 3.1 gm/dl (3.1-4.5); BUN 17 mg/dl (7-24); CHLORIDE 102 mmol/L (98-107); CREATININE 0.89 mg/dL (0.70-1.30); POTASSIUM 3.9 mmol/L (3.5-5.1); SGOT/AST 23 IU/L (3-35); SGPT/ALT 35 U/L (12-78); SODIUM 136 mmol/L (136-145); TOTAL PROTEIN 7.5 gm/dL (6.4-8.2)
[2020-12-06 08:02] LABS: ALKALINE PHOSPHATASE 111 U/L (45-117)
== END | disposition home or self-care (01) ==
LOC: LAB 06:48
PROVIDERS: ATTEND Urology
DX: C61 Malignant neoplasm of prostate (principal); R53.83 Other fatigue

== ENCOUNTER → 2021-01-24 | Outpatient (CLI) | payer BC ==
[~2021-01-24] MED LIST changes: +PROBIOTIC250 MG PO; +VITAMIN D325 MCG PO
== END | disposition home or self-care (01) ==
LOC: LAB 14:07
PROVIDERS: ATTEND Podiatrist
DX: Z01.812 Encounter for preprocedural laboratory examination (principal); E11.621 Type 2 diabetes mellitus with foot ulcer; L97.529 Non-pressure chronic ulcer of other part of left foot with unspecified severity; Z20.822 Contact with and (suspected) exposure to COVID-19

== ENCOUNTER → 2021-01-29 | Day surgery (SDC) | payer BC ==
[~2021-01-29] VITALS: Ht 200.6 cm; Wt 122.5 kg
[2021-01-29 07:20] VITALS: BP 132/68
[2021-01-29 08:33] VITALS: BP 104/60
[2021-01-29 08:43] VITALS: BP 90/42
[2021-01-29 08:59] VITALS: BP 121/72
== END | disposition home or self-care (01) ==
LOC: SDC 01-24 08:00
PROVIDERS: ATTEND Podiatrist
DX: M89.8X7 Other specified disorders of bone, ankle and foot (principal); E11.621 Type 2 diabetes mellitus with foot ulcer; L97.529 Non-pressure chronic ulcer of other part of left foot with unspecified severity; I25.10 Atherosclerotic heart disease of native coronary artery without angina pectoris; I10 Essential (primary) hypertension; I25.2 Old myocardial infarction; E78.00 Pure hypercholesterolemia, unspecified; Z79.899 Other long term (current) drug therapy

== ENCOUNTER → 2021-03-12 | Day surgery (SDC) | payer BC ==
[~2021-03-12] VITALS: Ht 200.6 cm; Wt 123.4 kg
[2021-03-12 07:08] VITALS: BP 130/56
[2021-03-12 08:10] VITALS: BP 108/48
[2021-03-12 08:29] VITALS: BP 127/62
[2021-03-12 08:40] VITALS: BP 131/61
== END | disposition home or self-care (01) ==
LOC: SDC 02-24 13:15
PROVIDERS: ATTEND Podiatrist
DX: M79.4 Hypertrophy of (infrapatellar) fat pad (principal); I10 Essential (primary) hypertension; E11.9 Type 2 diabetes mellitus without complications; I25.10 Atherosclerotic heart disease of native coronary artery without angina pectoris; E78.00 Pure hypercholesterolemia, unspecified; Z20.822 Contact with and (suspected) exposure to COVID-19; Z79.899 Other long term (current) drug therapy

== ENCOUNTER → 2021-03-25 | Outpatient (CLI) | payer BC ==
[2021-03-25 12:01] LABS: BASO # 0.1 10*3/uL (0.0-0.1); BASO % 0.4 % (0.0-1.0); EOS # 0.2 10*3/uL (0.0-0.4); EOS % 2.1 % (1.0-4.0); LYMPH # 3.5 10*3/uL (1.3-4.4); MEAN CELL VOLUME 89.8 fl (80.0-94.0); MEAN CORPUSCULAR HGB 30.5 pg (27.0-31.0); MEAN PLATELET VOLUME 9.4 fl (9.6-12.3); MONO # 0.7 10*3/uL (0.1-1.0); MONO % 6.2 % (3.0-9.0); NEUT # 6.7 10*3/uL (2.3-7.9); NEUT % 59.9 % (47.0-73.0); PLATELET COUNT AUTOMATED 352 10*3/uL (130-400); RED BLOOD COUNT 5.57 10*6/uL (4.50-5.90); RED CELL DISTRI WIDTH 13.7 % (0-14.5); WHITE BLOOD COUNT 11.2 10*3/uL (4.8-10.8)
[2021-03-25 13:37] LABS: CHLORIDE 101 mmol/L (98-107); POTASSIUM 4.3 mmol/L (3.5-5.1); SODIUM 133 mmol/L (136-145)
[2021-03-25 14:17] LABS: ALBUMIN 3.1 gm/dl (3.1-4.5); ALKALINE PHOSPHATASE 118 U/L (45-117); BUN 20 mg/dl (7-24); CREATININE 0.97 mg/dL (0.70-1.30); SGOT/AST 25 IU/L (3-35); SGPT/ALT 34 U/L (12-78); TOTAL PROTEIN 6.8 gm/dL (6.4-8.2)
== END | disposition home or self-care (01) ==
LOC: LAB 10:46
PROVIDERS: ATTEND Urology
DX: C61 Malignant neoplasm of prostate (principal); R53.83 Other fatigue

== ENCOUNTER → 2021-04-18 | Outpatient (CLI) | payer BC | END | disposition home or self-care (01) | LOC: LAB 12:27 | PROVIDERS: ATTEND Podiatrist | DX: Z01.812 Encounter for preprocedural laboratory examination (principal); Z20.822 Contact with and (suspected) exposure to COVID-19 ==

== ENCOUNTER → 2021-04-23 | Day surgery (SDC) | payer BC ==
[~2021-04-23] VITALS: Ht 200.6 cm; Wt 117.9 kg
[2021-04-23 11:10] VITALS: BP 129/62
[2021-04-23 12:23] VITALS: BP 98/41
[2021-04-23 12:38] VITALS: BP 111/56
== END | disposition home or self-care (01) ==
LOC: SDC 04-04 09:30
PROVIDERS: ATTEND Podiatrist
DX: M79.4 Hypertrophy of (infrapatellar) fat pad (principal); E10.9 Type 1 diabetes mellitus without complications; I10 Essential (primary) hypertension; E78.00 Pure hypercholesterolemia, unspecified; K21.9 Gastro-esophageal reflux disease without esophagitis; I25.10 Atherosclerotic heart disease of native coronary artery without angina pectoris; Z96.653 Presence of artificial knee joint, bilateral; Z88.1 Allergy status to other antibiotic agents; Z79.899 Other long term (current) drug therapy

== ENCOUNTER → 2021-07-17 | Outpatient (CLI) | payer BC ==
[2021-07-17 11:10] LABS: BASO % 0.4 % (0.0-1.0); EOS # 0.1 10*3/uL (0.0-0.4); EOS % 1.7 % (1.0-4.0); HEMATOCRIT 50.6 % (42.0-52.0); LYMPH % 36.4 % (27.0-41.0); MEAN CELL VOLUME 91.5 fl (80.0-94.0); MEAN CORPUSCULAR HGB 31.3 pg (27.0-31.0); MEAN CORPUSCULAR HGB CONC 34.2 g/dl (33.0-37.0); MEAN PLATELET VOLUME 9.2 fl (9.6-12.3); MONO # 0.6 10*3/uL (0.1-1.0); MONO % 7.6 % (3.0-9.0); NEUT # 4.5 10*3/uL (2.3-7.9); NEUT % 53.7 % (47.0-73.0); PLATELET COUNT AUTOMATED 330 10*3/uL (130-400); RED BLOOD COUNT 5.53 10*6/uL (4.50-5.90); RED CELL DISTRI WIDTH 13.9 % (0-14.5); WHITE BLOOD COUNT 8.3 10*3/uL (4.8-10.8)
[2021-07-17 11:27] LABS: ALBUMIN 3.1 gm/dl (3.1-4.5); ALKALINE PHOSPHATASE 98 U/L (45-117); BUN 17 mg/dl (7-24); CHLORIDE 102 mmol/L (98-107); POTASSIUM 3.9 mmol/L (3.5-5.1); SGOT/AST 21 IU/L (3-35); SGPT/ALT 29 U/L (12-78); SODIUM 135 mmol/L (136-145); TOTAL PROTEIN 7.4 gm/dL (6.4-8.2)
[2021-07-17 11:28] LABS: CHOLESTEROL 101 mg/dL (<200); LDL CHOLESTEROL 31 mg/dL (9-159); TRIGLYCERIDES 132 mg/dl (<150)
== END | disposition home or self-care (01) ==
LOC: LAB 10:48
PROVIDERS: Urology; ATTEND Internal Medicine
DX: E78.2 Mixed hyperlipidemia (principal)

== ENCOUNTER → 2021-07-22 | Outpatient (CLI) | payer BC | END | disposition home or self-care (01) | LOC: US 01:23 | PROVIDERS: ATTEND Urology | DX: N28.1 Cyst of kidney, acquired (principal) ==

== ENCOUNTER → 2021-08-27 | Day surgery (SDC) | payer BC ==
[2021-08-22 10:22] VITALS: BP 147/64
[~2021-08-27] VITALS: Ht 200.6 cm; Wt 122.5 kg
[~2021-08-27] MED LIST changes: +DOXYCYCLINE HY100 M3 PO
[2021-08-27 08:58] VITALS: BP 135/70
[2021-08-27 12:55] VITALS: BP 116/65
[2021-08-27 13:07] VITALS: BP 121/57
[2021-08-27 13:25] VITALS: BP 109/59
[2021-08-27 13:55] VITALS: BP 113/64
[2021-08-28 15:07] LABS: ACID FAST SPEC PROCESSING Tissue Grinding (.)
== END | disposition home or self-care (01) ==
LOC: SDC 08-22 12:30
PROVIDERS: ATTEND Podiatrist
DX: M20.12 Hallux valgus (acquired), left foot (principal); M77.32 Calcaneal spur, left foot; M25.372 Other instability, left ankle; I10 Essential (primary) hypertension; E11.9 Type 2 diabetes mellitus without complications; E78.00 Pure hypercholesterolemia, unspecified; I25.10 Atherosclerotic heart disease of native coronary artery without angina pectoris; Z79.899 Other long term (current) drug therapy

== ENCOUNTER → 2021-12-09 | Outpatient (CLI) | payer BC ==
[2021-12-09 08:42] LABS: BASO % 0.3 % (0.0-1.0); EOS # 0.2 10*3/uL (0.0-0.4); HEMATOCRIT 51.5 % (42.0-52.0); LYMPH # 3.3 10*3/uL (1.3-4.4); LYMPH % 37.4 % (27.0-41.0); MEAN CELL VOLUME 90.2 fl (80.0-94.0); MEAN CORPUSCULAR HGB 30.3 pg (27.0-31.0); MEAN CORPUSCULAR HGB CONC 33.6 g/dl (33.0-37.0); MEAN PLATELET VOLUME 8.8 fl (9.6-12.3); MONO # 0.8 10*3/uL (0.1-1.0); MONO % 9.7 % (3.0-9.0); NEUT # 4.4 10*3/uL (2.3-7.9); NEUT % 50.4 % (47.0-73.0); PLATELET COUNT AUTOMATED 318 10*3/uL (130-400); RED BLOOD COUNT 5.71 10*6/uL (4.50-5.90); RED CELL DISTRI WIDTH 13.2 % (0-14.5); WHITE BLOOD COUNT 8.7 10*3/uL (4.8-10.8)
[2021-12-09 09:23] LABS: ALKALINE PHOSPHATASE 107 U/L (45-117); BUN 16 mg/dl (7-24); CHLORIDE 101 mmol/L (98-107); CREATININE 0.97 mg/dL (0.70-1.30); POTASSIUM 3.7 mmol/L (3.5-5.1); SGOT/AST 24 IU/L (3-35); SGPT/ALT 29 U/L (12-78); SODIUM 135 mmol/L (136-145); TOTAL PROTEIN 7.6 gm/dL (6.4-8.2)
== END | disposition home or self-care (01) ==
LOC: LAB 08:30
PROVIDERS: ATTEND Urology
DX: C61 Malignant neoplasm of prostate (principal); R53.83 Other fatigue

== ENCOUNTER → 2022-04-08 | Outpatient (CLI) | payer BC, MEDICARE ==
[2022-04-08 09:18] LABS: BASO # 0.1 10*3/uL (0.0-0.1); BASO % 0.7 % (0.0-1.0); EOS # 0.3 10*3/uL (0.0-0.4); EOS % 3.7 % (1.0-4.0); HEMATOCRIT 48.8 % (42.0-52.0); LYMPH # 2.4 10*3/uL (1.3-4.4); LYMPH % 35.7 % (27.0-41.0); MEAN CELL VOLUME 90.9 fl (80.0-94.0); MEAN CORPUSCULAR HGB 31.5 pg (27.0-31.0); MEAN CORPUSCULAR HGB CONC 34.6 g/dl (33.0-37.0); MEAN PLATELET VOLUME 9.3 fl (9.6-12.3); MONO # 0.7 10*3/uL (0.1-1.0); MONO % 10.4 % (3.0-9.0); NEUT # 3.4 10*3/uL (2.3-7.9); NEUT % 49.2 % (47.0-73.0); PLATELET COUNT AUTOMATED 312 10*3/uL (130-400); RED BLOOD COUNT 5.37 10*6/uL (4.50-5.90); RED CELL DISTRI WIDTH 14.1 % (0-14.5); WHITE BLOOD COUNT 6.8 10*3/uL (4.8-10.8)
[2022-04-08 09:36] LABS: BUN 15 mg/dl (7-24); CHLORIDE 105 mmol/L (98-107); CREATININE 0.89 mg/dL (0.70-1.30); POTASSIUM 4.3 mmol/L (3.5-5.1); SGOT/AST 27 IU/L (3-35); SGPT/ALT 35 U/L (12-78); SODIUM 136 mmol/L (136-145)
[2022-04-08 09:37] LABS: ALKALINE PHOSPHATASE 90 U/L (45-117); TOTAL PROTEIN 6.8 gm/dL (6.4-8.2)
== END | disposition home or self-care (01) ==
LOC: LAB 08:29
PROVIDERS: ATTEND Urology
DX: C61 Malignant neoplasm of prostate (principal); R53.83 Other fatigue

== ENCOUNTER → 2022-04-30 | Outpatient (CLI) | payer BC, MEDICARE | END | disposition home or self-care (01) | LOC: LAB 08:28 | PROVIDERS: ATTEND Internal Medicine | DX: E10.65 Type 1 diabetes mellitus with hyperglycemia (principal) ==

== ENCOUNTER → 2022-06-29 | Outpatient (CLI) | payer BC, MEDICARE | END | disposition home or self-care (01) | LOC: US 10:31 | PROVIDERS: ATTEND Urology | DX: N13.30 Unspecified hydronephrosis (principal) ==

== ENCOUNTER → 2022-08-10 | Outpatient (CLI) | payer MEDICARE, BC ==
[2022-08-10 09:16] LABS: BASO % 0.3 % (0.0-1.0); EOS # 0.2 10*3/uL (0.0-0.4); EOS % 3.4 % (1.0-4.0); HEMATOCRIT 48.9 % (42.0-52.0); LYMPH # 2.4 10*3/uL (1.3-4.4); LYMPH % 34.9 % (27.0-41.0); MEAN CELL VOLUME 92.6 fl (80.0-94.0); MEAN CORPUSCULAR HGB CONC 34.6 g/dl (33.0-37.0); MEAN PLATELET VOLUME 9.2 fl (9.6-12.3); MONO # 0.6 10*3/uL (0.1-1.0); MONO % 8.9 % (3.0-9.0); NEUT # 3.6 10*3/uL (2.3-7.9); NEUT % 52.2 % (47.0-73.0); PLATELET COUNT AUTOMATED 290 10*3/uL (130-400); RED BLOOD COUNT 5.28 10*6/uL (4.50-5.90); RED CELL DISTRI WIDTH 13.2 % (0-14.5); WHITE BLOOD COUNT 6.8 10*3/uL (4.8-10.8)
[2022-08-10 09:29] LABS: BUN 22 mg/dl (7-24); CHLORIDE 106 mmol/L (98-107); CREATININE 0.93 mg/dL (0.70-1.30); POTASSIUM 4.6 mmol/L (3.5-5.1); SGPT/ALT 28 U/L (12-78); SODIUM 137 mmol/L (136-145)
[2022-08-10 09:33] LABS: ALKALINE PHOSPHATASE 92 U/L (45-117)
== END | disposition home or self-care (01) ==
LOC: LAB 08:48
PROVIDERS: ATTEND Urology
DX: C61 Malignant neoplasm of prostate (principal); R53.83 Other fatigue

== ENCOUNTER → 2022-11-12 | Outpatient (CLI) | payer MEDICARE, BC ==
[2022-11-12 08:54] LABS: BASO % 0.5 % (0.0-1.0); EOS # 0.1 10*3/uL (0.0-0.4); HEMATOCRIT 48.7 % (42.0-52.0); LYMPH # 2.4 10*3/uL (1.3-4.4); LYMPH % 27.6 % (27.0-41.0); MEAN CELL VOLUME 91.7 fl (80.0-94.0); MEAN CORPUSCULAR HGB 31.3 pg (27.0-31.0); MEAN CORPUSCULAR HGB CONC 34.1 g/dl (33.0-37.0); MONO # 0.6 10*3/uL (0.1-1.0); MONO % 7.2 % (3.0-9.0); NEUT # 5.6 10*3/uL (2.3-7.9); NEUT % 63.5 % (47.0-73.0); PLATELET COUNT AUTOMATED 302 10*3/uL (130-400); RED BLOOD COUNT 5.31 10*6/uL (4.50-5.90); RED CELL DISTRI WIDTH 13.6 % (0-14.5); WHITE BLOOD COUNT 8.8 10*3/uL (4.8-10.8)
[2022-11-12 09:11] LABS: CHOLESTEROL 94 mg/dL (<200); LDL CHOLESTEROL 41 mg/dL (9-159); TRIGLYCERIDES 75 mg/dl (<150)
[2022-11-12 09:12] LABS: ALKALINE PHOSPHATASE 77 U/L (46-116); BUN 15 mg/dl (9-23); CHLORIDE 104 mmol/L (98-107); POTASSIUM 4.2 mmol/L (3.4-5.1); SGPT/ALT 23 U/L (10-49); TOTAL PROTEIN 6.6 gm/dL (6.0-8.0)
== END | disposition home or self-care (01) ==
LOC: LAB 08:35
PROVIDERS: Internal Medicine; ATTEND Urology
DX: E78.5 Hyperlipidemia, unspecified (principal); C61 Malignant neoplasm of prostate; I10 Essential (primary) hypertension; R53.83 Other fatigue; Z13.0 Encounter for screening for diseases of the blood and blood-forming organs and certain disorders involving the immune mechanism; Z13.1 Encounter for screening for diabetes mellitus; Z13.21 Encounter for screening for nutritional disorder; Z13.220 Encounter for screening for lipoid disorders; Z13.228 Encounter for screening for other metabolic disorders; Z13.6 Encounter for screening for cardiovascular disorders; Z13.9 Encounter for screening, unspecified

== ENCOUNTER → 2022-12-03 | Outpatient (CLI) | payer MEDICARE, BC | END | disposition home or self-care (01) | LOC: LAB 08:07 | PROVIDERS: ATTEND Internal Medicine | DX: E10.65 Type 1 diabetes mellitus with hyperglycemia (principal) ==

== ENCOUNTER → 2023-03-03 | Outpatient (CLI) | payer MEDICARE, BC ==
[2023-03-03 08:44] LABS: BASO % 0.4 % (0.0-1.0); EOS # 0.2 10*3/uL (0.0-0.4); EOS % 2.5 % (1.0-4.0); HEMATOCRIT 49.2 % (42.0-52.0); LYMPH # 2.3 10*3/uL (1.3-4.4); LYMPH % 30.4 % (27.0-41.0); MEAN CELL VOLUME 91.4 fl (80.0-94.0); MEAN CORPUSCULAR HGB 31.6 pg (27.0-31.0); MEAN CORPUSCULAR HGB CONC 34.6 g/dl (33.0-37.0); MEAN PLATELET VOLUME 9.2 fl (9.6-12.3); MONO # 0.6 10*3/uL (0.1-1.0); MONO % 8.1 % (3.0-9.0); NEUT # 4.4 10*3/uL (2.3-7.9); NEUT % 58.2 % (47.0-73.0); PLATELET COUNT AUTOMATED 283 10*3/uL (130-400); RED BLOOD COUNT 5.38 10*6/uL (4.50-5.90); RED CELL DISTRI WIDTH 13.4 % (0-14.5); WHITE BLOOD COUNT 7.5 10*3/uL (4.8-10.8)
[2023-03-03 09:10] LABS: ALKALINE PHOSPHATASE 81 U/L (46-116); BUN 14 mg/dl (9-23); CHLORIDE 103 mmol/L (98-107); POTASSIUM 4.4 mmol/L (3.4-5.1); SGPT/ALT 23 U/L (10-49); TOTAL PROTEIN 6.5 gm/dL (6.0-8.0)
== END | disposition home or self-care (01) ==
LOC: LAB 08:17
PROVIDERS: ATTEND Urology
DX: C61 Malignant neoplasm of prostate (principal); R53.83 Other fatigue

== ENCOUNTER → 2023-07-09 | Outpatient (CLI) | payer MEDICARE, BC ==
[2023-07-09 09:59] LABS: BASO % 0.5 % (0.0-1.0); EOS # 0.1 10*3/uL (0.0-0.4); EOS % 1.3 % (1.0-4.0); HEMATOCRIT 47.2 % (42.0-52.0); LYMPH % 26.5 % (27.0-41.0); MEAN CELL VOLUME 93.7 fl (80.0-94.0); MEAN CORPUSCULAR HGB 31.9 pg (27.0-31.0); MEAN CORPUSCULAR HGB CONC 34.1 g/dl (33.0-37.0); MEAN PLATELET VOLUME 9.2 fl (9.6-12.3); MONO # 0.6 10*3/uL (0.1-1.0); MONO % 7.4 % (3.0-9.0); NEUT # 4.9 10*3/uL (2.3-7.9); NEUT % 63.9 % (47.0-73.0); PLATELET COUNT AUTOMATED 319 10*3/uL (130-400); RED BLOOD COUNT 5.04 10*6/uL (4.50-5.90); RED CELL DISTRI WIDTH 13.3 % (0-14.5); WHITE BLOOD COUNT 7.7 10*3/uL (4.8-10.8)
[2023-07-09 10:39] LABS: ALKALINE PHOSPHATASE 91 U/L (46-116); BUN 15 mg/dl (9-23); CHLORIDE 103 mmol/L (98-107); POTASSIUM 4.4 mmol/L (3.4-5.1); SGPT/ALT 24 U/L (-49); TOTAL PROTEIN 6.6 gm/dL (6.0-8.0)
== END ==
LOC: LAB 09:28
PROVIDERS: ATTEND Urology
DX: C61 Malignant neoplasm of prostate (principal); R53.83 Other fatigue

== ENCOUNTER → 2023-09-28 | Outpatient (CLI) | payer MEDICARE, BC | END | disposition home or self-care (01) | LOC: US 09-27 13:00 | PROVIDERS: ATTEND Urology | DX: N28.89 Other specified disorders of kidney and ureter (principal) ==

== ENCOUNTER → 2023-11-05 | Outpatient (CLI) | payer MEDICARE, BC ==
[2023-11-05 10:44] LABS: BASO % 0.6 % (0.0-1.0); EOS # 0.2 10*3/uL (0.0-0.4); EOS % 3.4 % (1.0-4.0); HEMATOCRIT 48.6 % (42.0-52.0); LYMPH # 2.3 10*3/uL (1.3-4.4); LYMPH % 32.9 % (27.0-41.0); MEAN CELL VOLUME 93.6 fl (80.0-94.0); MEAN CORPUSCULAR HGB CONC 33.1 g/dl (33.0-37.0); MEAN PLATELET VOLUME 9.5 fl (9.6-12.3); MONO # 0.7 10*3/uL (0.1-1.0); MONO % 9.8 % (3.0-9.0); NEUT # 3.7 10*3/uL (2.3-7.9); PLATELET COUNT AUTOMATED 275 10*3/uL (130-400); RED BLOOD COUNT 5.19 10*6/uL (4.50-5.90); RED CELL DISTRI WIDTH 13.5 % (0-14.5)
[2023-11-05 11:05] LABS: CHOLESTEROL 92 mg/dL (<200); LDL CHOLESTEROL 26 mg/dL (9-159); TRIGLYCERIDES 118 mg/dl (<150)
[2023-11-05 11:06] LABS: ALKALINE PHOSPHATASE 84 U/L (46-116); BUN 22 mg/dl (9-23); CHLORIDE 104 mmol/L (98-107); POTASSIUM 4.6 mmol/L (3.4-5.1); SGPT/ALT 19 U/L (5-49); TOTAL PROTEIN 6.4 gm/dL (6.0-8.0)
== END | disposition home or self-care (01) ==
LOC: LAB 09:35
PROVIDERS: Internal Medicine; ATTEND Urology
DX: C61 Malignant neoplasm of prostate (principal); I10 Essential (primary) hypertension; E10.9 Type 1 diabetes mellitus without complications; E78.2 Mixed hyperlipidemia

== ENCOUNTER → 2024-02-03 | Outpatient (CLI) | payer MEDICARE, BC ==
[2024-02-03 09:08] LABS: BASO % 0.6 % (0.0-1.0); EOS # 0.2 10*3/uL (0.0-0.4); EOS % 2.7 % (1.0-4.0); HEMATOCRIT 48.1 % (42.0-52.0); LYMPH % 29.1 % (27.0-41.0); MEAN CELL VOLUME 91.3 fl (80.0-94.0); MEAN CORPUSCULAR HGB 31.7 pg (27.0-31.0); MEAN CORPUSCULAR HGB CONC 34.7 g/dl (33.0-37.0); MEAN PLATELET VOLUME 9.3 fl (9.6-12.3); MONO # 0.7 10*3/uL (0.1-1.0); MONO % 9.7 % (3.0-9.0); NEUT % 57.6 % (47.0-73.0); PLATELET COUNT AUTOMATED 295 10*3/uL (130-400); RED BLOOD COUNT 5.27 10*6/uL (4.50-5.90); RED CELL DISTRI WIDTH 13.7 % (0-14.5); WHITE BLOOD COUNT 6.9 10*3/uL (4.8-10.8)
[2024-02-03 09:30] LABS: ALKALINE PHOSPHATASE 87 U/L (46-116); BUN 17 mg/dl (9-23); CHLORIDE 101 mmol/L (98-107); SGPT/ALT 23 U/L (5-49); TOTAL PROTEIN 6.6 gm/dL (6.0-8.0)
== END | disposition home or self-care (01) ==
LOC: LAB 08:51
PROVIDERS: ATTEND Urology
DX: C61 Malignant neoplasm of prostate (principal)

== ENCOUNTER → 2024-05-24 | Outpatient (CLI) | payer MEDICARE, BC ==
[2024-05-24 12:28] LABS: BASO % 0.3 % (0.0-1.0); EOS # 0.2 10*3/uL (0.0-0.4); EOS % 2.3 % (1.0-4.0); HEMATOCRIT 46.6 % (42.0-52.0); LYMPH # 2.5 10*3/uL (1.3-4.4); LYMPH % 34.5 % (27.0-41.0); MEAN CELL VOLUME 91.4 fl (80.0-94.0); MEAN CORPUSCULAR HGB 31.8 pg (27.0-31.0); MEAN CORPUSCULAR HGB CONC 34.8 g/dl (33.0-37.0); MEAN PLATELET VOLUME 9.1 fl (9.6-12.3); MONO # 0.7 10*3/uL (0.1-1.0); MONO % 9.5 % (3.0-9.0); NEUT # 3.9 10*3/uL (2.3-7.9); NEUT % 53.3 % (47.0-73.0); PLATELET COUNT AUTOMATED 283 10*3/uL (130-400); RED CELL DISTRI WIDTH 13.2 % (0-14.5); WHITE BLOOD COUNT 7.3 10*3/uL (4.8-10.8)
[2024-05-24 13:02] LABS: ALKALINE PHOSPHATASE 92 U/L (46-116); BUN 24 mg/dl (9-23); CHLORIDE 102 mmol/L (98-107); POTASSIUM 4.6 mmol/L (3.4-5.1); SGPT/ALT 23 U/L (5-49); TOTAL PROTEIN 6.6 gm/dL (6.0-8.0)
== END | disposition home or self-care (01) ==
LOC: LAB 12:00 → CT 13:00
PROVIDERS: ATTEND Urology
DX: K40.20 Bilateral inguinal hernia, without obstruction or gangrene, not specified as recurrent (principal); C61 Malignant neoplasm of prostate; R53.83 Other fatigue; K86.89 Other specified diseases of pancreas; I70.0 Atherosclerosis of aorta; M47.816 Spondylosis without myelopathy or radiculopathy, lumbar region

== ENCOUNTER → 2024-08-25 | Outpatient (CLI) | payer MEDICARE, BC ==
[2024-08-25 09:25] LABS: BASO % 0.5 % (0.0-1.0); EOS # 0.2 10*3/uL (0.0-0.4); EOS % 2.8 % (1.0-4.0); HEMATOCRIT 48.1 % (42.0-52.0); MEAN CORPUSCULAR HGB 30.9 pg (27.0-31.0); MEAN CORPUSCULAR HGB CONC 33.3 g/dl (33.0-37.0); MEAN PLATELET VOLUME 9.3 fl (9.6-12.3); MONO # 0.7 10*3/uL (0.1-1.0); NEUT # 2.7 10*3/uL (2.3-7.9); NEUT % 47.3 % (47.0-73.0); PLATELET COUNT AUTOMATED 301 10*3/uL (130-400); RED BLOOD COUNT 5.17 10*6/uL (4.50-5.90); RED CELL DISTRI WIDTH 13.4 % (0-14.5); WHITE BLOOD COUNT 5.8 10*3/uL (4.8-10.8)
[2024-08-25 09:34] LABS: BILIRUBIN Negative (Negative); BLOOD Negative (Negative); CLARITY Cloudy (Clear); COLOR Yellow (Yellow); GLUCOSE Negative (Negative); KETONE Negative (Negative); LEUKO ESTERASE 3+ (Negative); NITRITE Negative (Negative); SPECIFIC GRAVITY 1.015 (1.001-1.030); UROBILINOGEN 0.2 E.U./dl (0.0-1.0)
[2024-08-25 09:51] LABS: ALKALINE PHOSPHATASE 88 U/L (46-116); BUN 18 mg/dl (9-23); CHLORIDE 104 mmol/L (98-107); POTASSIUM 4.5 mmol/L (3.4-5.1); SGPT/ALT 26 U/L (5-49); TOTAL PROTEIN 6.9 gm/dL (6.0-8.0)
[2024-08-25 12:21] LABS: BACTERIA 1+; RBC 0-2 rbc/hpf (0-2); WBC 51-100 wbc/hpf (0-5)
== END | disposition home or self-care (01) ==
LOC: LAB 08:39
PROVIDERS: ATTEND Urology
DX: C61 Malignant neoplasm of prostate (principal); R53.83 Other fatigue; R31.9 Hematuria, unspecified

== ENCOUNTER → 2024-12-01 | Outpatient (CLI) | payer MEDICARE, BC ==
[2024-12-01 09:44] LABS: BASO # 0.1 10*3/uL (0.0-0.1); BASO % 0.7 % (0.0-1.0); EOS # 0.4 10*3/uL (0.0-0.4); HEMATOCRIT 47.6 % (42.0-52.0); MEAN CELL VOLUME 90.8 fl (80.0-94.0); MEAN CORPUSCULAR HGB 31.1 pg (27.0-31.0); MEAN CORPUSCULAR HGB CONC 34.2 g/dl (33.0-37.0); MEAN PLATELET VOLUME 8.9 fl (9.6-12.3); MONO % 12.1 % (3.0-9.0); NEUT # 4.3 10*3/uL (2.3-7.9); NEUT % 52.4 % (47.0-73.0); PLATELET COUNT AUTOMATED 286 10*3/uL (130-400); RED BLOOD COUNT 5.24 10*6/uL (4.50-5.90); RED CELL DISTRI WIDTH 13.3 % (0-14.5); WHITE BLOOD COUNT 8.1 10*3/uL (4.8-10.8)
[2024-12-01 10:13] LABS: ALKALINE PHOSPHATASE 87 U/L (46-116); BUN 25 mg/dl (9-23); CHLORIDE 101 mmol/L (98-107); POTASSIUM 4.7 mmol/L (3.4-5.1); SGPT/ALT 27 U/L (5-49); TOTAL PROTEIN 6.7 gm/dL (6.0-8.0)
== END | disposition home or self-care (01) ==
LOC: LAB 09:26
PROVIDERS: ATTEND Urology
DX: C61 Malignant neoplasm of prostate (principal); R53.83 Other fatigue

== ENCOUNTER → 2025-04-05 | Outpatient (CLI) | payer MEDICARE, BC ==
[2025-04-05 09:04] LABS: BASO # 0.1 10*3/uL (0.0-0.1); BASO % 0.6 % (0.0-1.0); EOS # 0.4 10*3/uL (0.0-0.4); EOS % 4.9 % (1.0-4.0); MEAN CELL VOLUME 92.0 fl (80.0-94.0); MEAN CORPUSCULAR HGB 30.7 pg (27.0-31.0); MEAN PLATELET VOLUME 9.1 fl (9.6-12.3); MONO # 0.7 10*3/uL (0.1-1.0); MONO % 9.1 % (3.0-9.0); NEUT # 4.8 10*3/uL (2.3-7.9); NEUT % 61.5 % (47.0-73.0); NUCLEATED RED BLOOD CELL 0.0 % (0.0-0.0); NUCLEATED RED BLOOD CELL 0.0 10*3/uL (0.0-0.0); PLATELET COUNT AUTOMATED 302 10*3/uL (130-400); RED CELL DISTRI WIDTH 13.2 % (0-14.5)
[2025-04-05 10:26] LABS: BUN 20 mg/dl (9-23); SGPT/ALT 24 U/L (5-49)
== END | disposition home or self-care (01) ==
LOC: LAB 08:47
DX: C61 Malignant neoplasm of prostate (principal); R53.83 Other fatigue

== ENCOUNTER → 2025-08-03 | Outpatient (CLI) | payer MEDICARE, BC ==
[2025-08-03 10:34] LABS: BASO # 0.0 10*3/uL (0.0-0.1); BASO % 0.5 % (0.0-1.0); EOS # 0.2 10*3/uL (0.0-0.4); EOS % 3.3 % (1.0-4.0); MEAN CELL VOLUME 90.4 fl (80.0-94.0); MEAN CORPUSCULAR HGB 31.2 pg (27.0-31.0); MEAN PLATELET VOLUME 8.8 fl (9.6-12.3); MONO # 0.8 10*3/uL (0.1-1.0); MONO % 10.7 % (3.0-9.0); NEUT # 4.9 10*3/uL (2.3-7.9); NEUT % 66.2 % (47.0-73.0); NUCLEATED RED BLOOD CELL 0.0 % (0.0-0.0); NUCLEATED RED BLOOD CELL 0.0 10*3/uL (0.0-0.0); PLATELET COUNT AUTOMATED 269 10*3/uL (130-400); RED CELL DISTRI WIDTH 13.4 % (0-14.5)
[2025-08-03 11:02] LABS: BUN 17 mg/dl (9-23); SGPT/ALT 27 U/L (5-49)
== END | disposition home or self-care (01) ==
LOC: LAB 09:33
PROVIDERS: ATTEND Urology
DX: C61 Malignant neoplasm of prostate (principal); R53.83 Other fatigue